=== PATIENT | female | born 1945 | race Caucasian/White ===

== ENCOUNTER → 2017-01-26 11:04 | Outpatient (CLI) | payer MEDICARE, OTHER ==
[~2017-01-26] VITALS: Ht 162.6 cm; Wt 79.1 kg
--- NOTE | ~2017-01-26 | HEMODYNAMI ---
PATIENT:CATERINA HORTON MEDICAL RECORD: [id number] : 47 LOCATION:[facility] ADMISSION DATE: 01/26/17 Generatedon:01/26/201713:49 Patient name: CATERINA HORTON Patient #: [id number] SSN: [id number] : 1945 Date of study: 01/26/2017 Page: Of Hemodynamic Procedure Report Patient Data Patient Demographics Procedure consent was obtained First Name: CATERINA Gender: Female Last Name: CLIFFORD : 1945 [facility] Initial: J Age: 71 year(s) Patient #: [id number] Race: SSN: [id number] Additional ID: [id number] Contact details [address]: [address] [place] [address] State: [place] City: [facility] Zip code: [address] Past Medical History Allergies Allergen Reaction Date Comments Reported Other allergy 01/26/2017 Baltazar Inhibitors Admission Admission Data Admission Date: 01/26/2017 Admission Time: 11:04 Arrival Date: 01/26/2017 Arrival Time: 13:00 Admit Source: Other Insurance Payor: Medicare Height (in.): 64 BSA: 1.84 (m2) Height (cm.): 162.56 BMI: 29.87 (kg/m2) Weight (lbs.): 174 Weight (kg.): 78.93 Lab Results Lab Result Date: 01/26/2017 Lab Result Time: 0:00 Biochemistry Name Units Result Min Max BUN mg/dl 19 --(----)*- 7 18 Creatinine mg/dl 0.9 --(-*--)-- 0.6 1.3 CBC Name Units Result Min Max Hemoglobin g/dl 12.3 *-(----)-- 13.5 17.5 Procedure Procedure Types Cath Procedure Diagnostic Procedure C Coronaries only Aortic Root Angiography Miscellaneous Procedures Moderate Sedation up to 30 minutes Procedure Description Procedure Date Procedure Date: 01/26/2017 Procedure Start Time: 13:23 Procedure End Time: 13:48 Procedure Staff Name Function Melvin Mcleod MD Performing Physician Bhavna Miller RT Scrub Tan Edwards RT Scrub Amrit Rose RN Nurse Angela Adair RT Monitor Procedure Data Cath Procedure Fluoroscopy Diagnostic fluoroscopy Total fluoroscopy Time: 5.1 time: 5.1 min min Diagnostic fluoroscopy Total fluoroscopy dose: 570 dose: 570 mGy mGy Contrast Material Contrast Material Type Amount (ml) Isovue 300 126 Entry Location Entry Primary Successful Side Size Upsize Upsize Entry Closure Succes sful Closure Location (Fr) 1 (Fr) 2 (Fr) Remarks Device Remarks Femoral Right 5 Fr Exoseal artery Estimated blood loss: 5 ml Diagnostic catheters Device Type Used For End Catheter Placement Cordis 5Fr JL 4.0 Left Coronary Catheter (MP) Angiography Cordis 5Fr 3DRC Catheter Right Coronary (MP) Angiography Cordis 5Fr Pigtail LV Angiography Catheter (MP) Diagnostic Infinity 5Fr Multi-vessel IM catheter Angiography Procedure Complications No complications Procedure Medications Medication Administration Route Dosage Versed I.V. 1 mg Fentanyl I.V. 50 mcg Versed I.V. 1 mg Fentanyl I.V. 50 mcg Hemodynamics Rest BSA: 1.84 (m2) HGB: 12.3 (g/dl) O2 Consumption: Estimated: 162.18 (ml/min) O2 Co nsumption indexed: Estimated:88.14 (ml/min/m) Heart Rate: 59 (bpm) Snapshots Pre Cath Intra NCS Post Cath Vital Signs Time Heart Resp SPO2 etCO2 [id number] NIBP (mmHg) Rhythm Pain Sedation Rate (ipm) (%) (mmHg) (mmHg) Status Level (bpm) 13:08:54 57 28 99 0 0 168/65(124) NSR 0 (11) 10(A) , No pain 13:13:23 56 29 96 0 0 161/66(113) NSR 0 (11) 10(A) , No pain 13:17:37 70 16 90 0 0 138/73(100) NSR 0 (11) 10(A) , No pain 13:21:59 56 19 95 0 0 136/60(118) NSR 0 (11) 9(A) , No pain 13:26:13 63 16 96 0 0 133/68(78) NSR 0 (11) 9(A) , No pain 13:30:27 70 16 90 0 0 132/67(92) NSR 0 (11) 9(A) , No pain 13:34:49 68 18 92 0 0 123/57(92) NSR 0 (11) 9(A) , No pain 13:39:01 71 20 93 0 0 133/69(108) NSR 0 (11) 9(A) , No pain 13:43:19 70 19 93 0 0 142/68(96) NSR 0 (11) 9(A) , No pain 13:47:37 69 9 94 0 0 137/71(106) NSR 0 (11) 10(A) , No pain Medications Time Medication Route Dose Verified Delivered Reason Notes Effectivene ss by by 13:16:14 Versed I.V. 1 mg Amrit Amrit for Milton Rose RN sedation RN 13:16:34 Fentanyl I.V. 50 Amrit Amrit for ronda Rose RN sedation RN 13:21:47 Versed I.V. 1 mg Amrit Tannery for Milton Rose RN sedation RN 13:21:55 Fentanyl I.V. 50 Amrit Amrit for ronda Rose RN sedation concrete bucket unloader Log Time Note 12:50:29 Amrit Rose RN sent for patient. Start room use. 13:01:50 Diagnostic Cath Status : Elective 13:02:31 Patient Height : 64 cm 13:02:35 Patient Weight : 174 kg 13:02:35 Admit Source: Other 13:03:14 Insurance Payor : Medicare 13:03:20 Arrival Date: 01/26/2017 1:00:00 PM 13:03:38 Time tracking: Regular hours 13:03:45 Plan of Care:Hemodynamics will remain stable., Cardiac rhythm will remain stable., Comfort level will be maintained., Respiratory function will remain adequate., Patient/ family verbilizes understanding of procedure., Procedure tolerated without complication., Recovers from procedure without complications.. 13:04:28 Patient received from Pre/Post Procedure Room to [facility] 1 Alert and oriented. Tansferred to table in Supine position. 13:04:31 Warm blankets applied, and jj hugger turned on for patient comfort. 13:04:32 Correct patient and procedure confirmed by team. 13:04:34 Signed procedure consent form obtained from patient. 13:04:35 ECG and BP/O2 sat monitors applied to patient. 13:07:33 Vital chart was started 13:09:57 Baseline sample Acquired. 13:10:34 H&P Date Dictated: 01/26/2017 Within 30 days and on chart., H&P Addendum completed by physician on day of procedure. (MUST COMPLETE FOR ALL OUTPATIENTS). 13:10:36 Pre-procedure instructions explained to patient. 13:10:36 Pre-op teaching completed and patient verbalized understanding. 13:10:38 Family in waiting room. 13:10:39 Patient NPO since Midnight. 13:10:55 Patient allergic to Other allergyAce Inhibitors 13:11:08 Is the patient allergic to Iodine/contrast media? No. 13:11:10 Was the patient premedicated? No 13:11:13 Is patient on blood thinner?Yes 13:11:18 ACC The patient was administered the following blood thiners within the last 24 hours: ACCPlavix 13:13:10 Patient diabetic? No. 13:13:12 Previous problem with sedation/anesthesia? No ? 13:13:15 Snore? Yes 13:13:16 Sleep apnea? No 13:13:18 Deviated septum? No 13:13:18 Opens mouth fully? Yes 13:13:19 Sticks out tongue? Yes 13:13:22 Airway obstruction? No ? 13:13:25 Dentures? No ? 13:13:30 Pre procedure: right dorsailis pedis pulse 1+ Palpable, but thready & weak; easily obliterated 13:13:32 Patient pain scale 0/10 ?. 13:13:43 IV patent on arrival in left forearm with 0.9% NaCl at O. 13:15:58 Lab Result : Creatinine 0.9 mg/dl 13:15:58 Lab Result : BUN 19 mg/dl 13:15:58 Lab Result : Hemoglobin 12.3 g/dl 13:16:04 Lab results completed and on chart. 13:16:07 Right groin area was prepped with chlora-prep and draped in sterile fashion 13:16:09 Alarms reviewed by R. N. 13:16:09 Sharps counted by scrub and verified by R.N. 13:16:12 Physician arrived 13:16:12 --------ALL STOP TIME OUT------ 13:16:13 Final Timeout: patient, procedure, and site verified with staff and physician. All members of the team are in agreement. 13:16:14 Versed 1 mg I.V. was administered by Amrit Rose RN; for sedation; 13:16:16 Right groin site verified by team. 13:16:19 Physical assessment completed. ASA score P 2 - A patient with mild systemic disease as per Melvin Mcleod MD. 13:16:23 Sedation plan: IV Moderate Sedation Versed, Fentanyl 13:16:33 Use device set Femoral Dx 13:16:34 Fentanyl 50 mcg I.V. was administered by Amrit Rose RN; for sedation; 13:16:35 Acist Syringe opened to sterile field. 13:16:35 Bag Decanter opened to sterile field. 13:16:36 Medline Cath Pack opened to sterile field. 13:16:36 Terumo 5Fr [place] Sheath opened to sterile field. 13:16:37 St José Miguel 260cm J .035 wire opened to sterile field. 13:16:38 Acist Hand Control opened to sterile field. 13:16:39 Acist Manifold opened to sterile field. 13:16:39 Diagnostic Infinity 5Fr Multipack catheter opened to sterile field. 13:16:40 Tegaderm 4 x 4 opened to sterile field. 13:19:12 Zero performed for pressure channel P1 13:19:20 Zero performed for pressure channel P1 13:21:47 Versed 1 mg I.V. was administered by Amrit Rose RN; for sedation; 13:21:55 Fentanyl 50 mcg I.V. was administered by Amrit Rose RN; for sedation; 13:23:30 Procedure started. 13:23:30 Full Disclosure recording started 13:23:34 Local anesthetic to right femoral artery with Lidocaine 2% by Melvin Mcleod MD.INITIAL ACCESS ONLY 13:23:55 A 5 Fr sheath was inserted into the Right Femoral artery 13:26:20 A Cordis 5Fr JL 4.0 Catheter (JORGE) was advanced over the wire and used for Left Coronary Angiography. 13:27:45 LCA angiography performed. 13:27:49 Injector settings: Ml/sec: 3, Volume: 6, 13:30:35 Catheter removed. 13:30:57 A Cordis 5Fr 3DRC Catheter (MP) was advanced over the wire and used for Right Coronary Angiography. 13:31:46 RCA angiography performed. 13:31:50 Injector settings: Ml/sec: 3, Volume: 6, 13:34:14 Catheter removed. 13:34:21 A Cordis 5Fr Pigtail Catheter (MP) was advanced over the wire and used for LV Angiography. 13:35:46 Aortic Root visualized 13:36:32 Catheter removed. 13:37:06 A Diagnostic Infinity 5Fr IM catheter was advanced over the wire and used for Multi-vessel Angiography. 13:38:43 Bilateral carotid angiography performed. 13:42:41 Catheter removed. 13:45:02 Cordis 5Fr Exoseal opened to sterile field. 13:45:23 Sheath removed intact; hemostasis achieved with Exoseal to the Right Femoral artery. 13:45:26 Procedure ended.(Physican Out) 13:46:27 Fluoroscopy time 05.10 minutes. 13:46:31 Fluoroscopy dose: 570 mGy 13:46:31 Flurop Dose total: 570 13:47:02 Contrast amount:Isovue 300 126ml. 13:47:04 Sharps counted by scrub and verified by R.N. 13:47:05 Insertion/operative site no bleeding no hematoma. 13:47:08 Post-op/insertion site Right Femoral artery dressed using a 4 x 4 and Tegaderm. 13:47:16 Post right femoral artery:stable 13:47:18 Post Procedure Pulses reassessed and unchanged 13:47:21 Post procedure rhythm: unchanged. 13:47:24 Estimated blood loss: 5 ml 13:47:26 Post procedure instruction explained to patient.Patient verbalizes understanding. 13:47:26 Patient needs reinforcement of post procedure teaching. 13:48:06 Procedure type changed to Cath procedure, Diagnostic procedure, LHC, Coronaries only, Aortic Root Angiography, Miscellaneous Procedures, Moderate Sedation up to 30 minutes 13:48:08 Procedure and supply charges have been captured, reviewed, submitted and are correct. 13:48:14 Procedure Complication : No complications 13:48:19 Vital chart was stopped 13:48:19 See physician's report for complete and final results. 13:48:22 Report given to Pre/Post Procedure Room. 13:48:26 Patient transfered to Pre/Post Procedure Room with Stretcher. 13:48:33 Procedure ended. 13:48:33 Full Disclosure recording stopped 13:48:41 End room use (Document Last) Device Usage Item Name Manufacture Quantity Catalog Hospital Part Current Minimal Lo t# / Number Charge Number Stock Stock Serial# Code Acist Acist 1 [id number] 609666 923109 20 Syringe Medical Systems Inc Bag Microtek 1 2002S 516318 60176 759608 5 Decanter Medical Inc. Medline Cardinal 1 [id number] 627443 74463 749805 5 Cath Pack Health Terumo 5Fr Terumo 1 [id number] 079360 092750 690222 [address] [facility] 1 126777 968819 797165 135543 30 260cm J .035 wire Acist Hand Acist 1 73889 546830 492133 725030 5 Control Medical Systems Inc Acist Acist 1 31949 502514 265952 405761 5 Manifold Medical Systems Inc Diagnostic Cardinal 1 [id number] 376404 61340 256086 30 Infinity Health 5Fr Multipack catheter Tegaderm 4 3M 1 1626W 452574 167714 094783 5 x 4 Cordis 5Fr Cardinal 1 940762 5 JL 4.0 Health Catheter (MP) Cordis 5Fr Cardinal 1 735963 5 3DRC Health Catheter (MP) Cordis 5Fr Cardinal 1 [id number] 5 Pigtail Health Catheter (MP) Diagnostic Cardinal 1 [id number] 304501 858626 989104 5 Infinity Health 5Fr IM catheter Cordis 5Fr Cardinal 1 EX500 617135 403842 224057 10 [facility] [employer] Signature Audit [place] Stage Time Signature Unsigned Intra-Procedure 01/26/2017 Angela Adair 1:49:55 PM RT(R) Signatures Monitor : Angela Adair RT Signature : Date : Time : [facility] [address] [place] [address]
[~2017-01-26 11:04] MED LIST: BAYER CHEWABLE81 MG PO; BYSTOLIC10 MG PO; CARAFATE1 G PO; CELEXA20 MG PO; DIOVAN320 MG PO; LYRICA75 MG PO; PEPCID AC20 MG PO; PERSER VISION; PLAVIX75 MG PO; PRAVACHOL20 MG PO; PROBIOTIC1 EAC1 PO; SYNTHROID25 MCG PO; TUMS500 MG PO; VITAMIN D31000 UNI2 PO
[2017-01-26 11:45] VITALS: BP 152/61; Ht 162.6 cm; Wt 79.1 kg
[2017-01-26 12:02] LABS: BASOPHILS 0.4 % (0-2); EOSINOPHILS 2.7 % (0-7); HEMATOCRIT 35.4 % (36.0-48.0); HEMOGLOBIN 12.3 g/dL (12-16); IMMATURE GRANULOCYTES 0.2 % (0-5); LYMPHOCYTES 30.7 % (15-50); MCH 34.2 pg (26.0-34.0); MCHC 34.7 g/dL (31.0-37.0); MCV 98.3 fL (80.0-100.0); MEAN PLATELET VOLUME 11.4 fL (7.4-10.4); MONOCYTES 6.7 % (2-11); NEUTROPHILS 59.3 % (40-80); PLATELET COUNT 189 10x3/uL (130-400); RDW 13.6 % (11.5-14.5); WBC 5.5 10x3/uL (4.8-10.8)
[2017-01-26 12:13] LABS: ANION GAP 13.3 mmol/L (8-16); CALCIUM 9.2 mg/dL (8.5-10.1); CARBON DIOXIDE 26.2 mmol/L (21.0-32.0); CREATININE - SERUM 0.9 mg/dL (0.6-1.3); POTASSIUM - SERUM 4.5 mmol/L (3.5-5.1)
--- NOTE | 2017-01-26 14:15 | NUR ---
RIGHT GROIN CDI, NO HEMATOMA OR BLEEDING AT SITE, SOFT TO TOUCH. FRIEND AT SIDE
--- NOTE | 2017-01-26 14:45 | NUR ---
NO CHANGES IN RIGHT GROIN, RESTING WITH EYES CLOSED, VSS
--- NOTE | 2017-01-26 16:20 | NUR ---
IV D'C WITH CATH TIP INTACT, UP TO RESTROOM- VOID. WRITTEN AND VERBAL D'C INSTRUCTIONS GIVEN TO PT AND FRIEND. DENIES PAIN OR FURTHUR NEEDS.
== END | disposition home or self-care (01) ==
LOC: D.CATH 11:04
PROVIDERS: Internal Medicine Cardiovascular Disease
DX: I25.119 Atherosclerotic heart disease of native coronary artery with unspecified angina pectoris (principal); R94.30 Abnormal result of cardiovascular function study, unspecified; R06.02 Shortness of breath; I35.9 Nonrheumatic aortic valve disorder, unspecified; I10 Essential (primary) hypertension; Z01.812 Encounter for preprocedural laboratory examination

== ENCOUNTER → 2017-01-28 13:30 | Outpatient (CLI) | payer MEDICARE, OTHER ==
[2017-01-26 11:45] VITALS: BMI 29.9
== END | disposition home or self-care (01) ==
LOC: D.CT 13:30
DX: I65.23 Occlusion and stenosis of bilateral carotid arteries (principal)

== ENCOUNTER → 2017-02-05 15:11 | Outpatient (CLI) | payer MEDICARE, OTHER ==
[2017-01-26 11:45] VITALS: BMI 29.9
[2017-02-06 11:10] LABS: HEPATITIS C ANTIBODY <0.1 (0.0-0.9)
== END | disposition home or self-care (01) ==
LOC: D.US 15:00
PROVIDERS: Internal Medicine Cardiovascular Disease
DX: I25.10 Atherosclerotic heart disease of native coronary artery without angina pectoris (principal); R09.89 Other specified symptoms and signs involving the circulatory and respiratory systems; Z01.812 Encounter for preprocedural laboratory examination

== ENCOUNTER 2017-02-12 05:00 | Inpatient (IN) | payer MEDICARE, OTHER ==
[2017-02-11 11:34] LABS: BASOPHILS 0.2 % (0-2); EOSINOPHILS 3.2 % (0-7); HEMATOCRIT 35.4 % (36.0-48.0); HEMOGLOBIN 12.1 g/dL (12-16); LYMPHOCYTES 29.3 % (15-50); MCH 34.2 pg (26.0-34.0); MCHC 34.2 g/dL (31.0-37.0); MEAN PLATELET VOLUME 11.7 fL (7.4-10.4); MONOCYTES 7.2 % (2-11); NEUTROPHILS 60.1 % (40-80); PLATELET COUNT 167 10x3/uL (130-400); RBC 3.54 10x6/uL (4.00-5.40); WBC 5.3 10x3/uL (4.8-10.8)
[2017-02-11 11:43] LABS: APTT 28.9 SECONDS (22.8-39.4); INR 0.95 (0.85-1.17); PROTIME 12.5 SECONDS (11.6-15.0)
[2017-02-11 11:45] LABS: HEMOGLOBIN A1C 5.1 % (4.8-6.0)
[2017-02-11 11:52] LABS: APPEARANCE CLEAR (CLEAR); BILIRUBIN NEGATIVE (NEGATIVE); COLOR YELLOW (YELLOW); GLUCOSE NEGATIVE (NEGATIVE); KETONE NEGATIVE (NEGATIVE); LEUKOCYTE ESTERASE NEGATIVE (NEGATIVE); NITRITE NEGATIVE (NEGATIVE); PROTEIN NEGATIVE (NEGATIVE); UROBILINOGEN NORMAL (NORMAL)
[2017-02-11 11:59] LABS: ANION GAP 9.3 mmol/L (8-16); BILIRUBIN - TOTAL 0.51 mg/dL (0.2-1.3); CALCIUM 9.2 mg/dL (8.5-10.1); CARBON DIOXIDE 30.7 mmol/L (21.0-32.0); CREATININE - SERUM 0.9 mg/dL (0.6-1.3); PHOSPHOROUS 3.9 mg/dL (2.5-4.9); PROTEIN - SERUM 7.5 g/dL (6.4-8.2); T4 THYROXIN - FREE 1.01 ng/dL (0.76-1.46); THYROID STIMULATING HORMONE 4.32 uIU/mL (0.36-3.74); URIC ACID 5.6 mg/dL (2.6-7.2)
[2017-02-11 12:09] LABS: PLT FUNCT.(P2Y12) PLAVIX 257 PRU (194-418)
[2017-02-11 14:09] LABS: COLD SCREEN @ 4 DEGREES 2+ (NEGATIVE); COLD SCREEN ROOM TEMP NEGATIVE (NEGATIVE)
[2017-02-12] VITALS (37 sets, daily range): BP systolic 97–168; BP diastolic 42–77; BMI 29.9; BMI 30.6
[~2017-02-12] VITALS: Ht 162.6 cm; Wt 80.9 kg
--- NOTE | ~2017-02-12 | TEE ---
PATIENT:CATERINA HORTON MEDICAL RECORD: [id number] LOCATION:[place] [address] AGE OF PATIENT: 71 ADMISSION DATE: 02/12/17 SEX: F REFERRING PHYSICIAN: INTERPRETING PHYSICIAN: ROSARIO EDWARDS MD TRANSESOPHAGEAL ECHOCARDIOGRAM MICHAEL CHARGE Y INDICATIONS: CABG PREMEDICATIONS: PATIENT'S RESPONSE PROCEDURE DOPPLER MEASUREMENTS: LVIT LA PA RA LVOT RVOT Asc. Ao AV Gradient Peak AV Mean AV Area MV Gradient Peak MV Mean MV Area INTERPRETATION: Doppler: 2-D: EF 50 % COLOR FLOW DOPPLER MILD MR/TRACE TR NORMAL SALINE STUDY: MISCELLANOUS: DIAGNOSIS: PLAN: Audio Narrator:2 Dr. Mcleod Accounting Systems Manager: 1 ADRIEL GRIMES COMMENTS: GUILLERMO PATIENT DATE OF SERVICE: 02/12/2017 PROCEDURE: Transesophageal echo evaluation of valvular structures during bypass surgery. FINDINGS: 1. Left ventricular chamber size is within normal limits. Left ventricular systolic function is normal. Overall ejection fraction estimated at 50%. 2. Left atrium, right atrium, and right ventricle chamber sizes are within TRANSESOPHAGEAL ECHOCARDIOGRAM REPORT [id number] AXEL HORTON normal limits. 3. Valvular structures have normal structure and motion. 4. Doppler interrogation reveals mild mitral regurgitation, mild tricuspid regurgitation, no other valvular insufficiency or stenosis. 5. No evidence of pericardial effusion or left ventricular thrombus. TRANSINT:[id number] Voice Confirmation ID: [id number] DOCUMENT ID: [id number] ROSARIO EDWARDS MD CC: [id number] DICTATION DATE: 02/15/17 1028 FUR STORAGE CLERK: 02/15/17 1258 ADM IN [place] [address] [place] [address]
[~2017-02-12 05:00] MED LIST changes: +MELATONIN10 M1 PO; -PERSER VISION; +PERSER VISION PO; +PRESERVISION AR1 CAP PO
[2017-02-12 07:40] LABS: PLT FUNCT.(P2Y12) PLAVIX 249 PRU (194-418)
[2017-02-12 14:24] LABS: HEMATOCRIT 30.4 % (36.0-48.0); HEMOGLOBIN 10.7 g/dL (12-16); MCH 33.1 pg (26.0-34.0); MCHC 35.2 g/dL (31.0-37.0); MCV 94.1 fL (80.0-100.0); RBC 3.23 10x6/uL (4.00-5.40); RDW 14.9 % (11.5-14.5); WBC 10.2 10x3/uL (4.8-10.8)
[2017-02-12 14:30] LABS: APTT 36.4 SECONDS (22.8-39.4); CALCIUM 7.3 mg/dL (8.5-10.1); CARBON DIOXIDE 27.5 mmol/L (21.0-32.0); CHLORIDE - SERUM 113 mmol/L (98-107); CREATININE - SERUM 0.7 mg/dL (0.6-1.3); INR 1.42 (0.85-1.17); PROTIME 17.2 SECONDS (11.6-15.0); SODIUM 151 mmol/L (136-145); UREA NITROGEN 16 mg/dL (7-18); eGFR NON AFRICAN AMERICAN 88 mL/min (90-120)
[2017-02-12 14:31] LABS: CALC OSMOLALITY 305 mosm/kg (275-300); GLUCOSE 195 mg/dL (74-106)
--- NOTE | 2017-02-12 15:00 | NUR ---
PT ARRIVED TO ROOM VIA BED, ACCOMPANIED BY O.R. STAFF. PT IS VENTILATED. HAS PLASMALYTE, DOPAMINE, LEVOPHED INFUSING. HAS CHEST TUBE X3. MIDSTERNAL DRESSING INTACT AND CLEAN. SUBSTERNAL DRESSING OVER CHEST TUBES AND TEMP PACER IS INTACT AND CLEAN. RIGHT LEG GRAFT SITES DRESSING IS INTACT. SUDEEP DRAINS X2. COMPRESSED. PT HAS CRITICORE GOVEA. CURRENT TEMP IS 36.4. URINE CLEAR, DARK YELLOW. WARMING BLANKET STARTED. ILIA AND SCD ON LEFT LEG ONLY AT THIS TIME. PT IS CURRENTLY PACED WITH PACEMAKER SETTING OF DDD 90, 20, 10. HAS OGT. VERIFIED PLACEMENT VIA AUSCULTATION. VISIBLE GASTRIC RETURN UPON PLACING ON SUCTION. PT ETT IS SECURED. 21CM AT LIPLINE. SIZE 8.0. HAS LEFT SUBCLAVIAN CENTRAL LINE. RIGHT IJ SWAN AT 51CM. LOCKED AND SECURED. HAS RIGHT RADIAL ART LINE. ART, PA AND CVL ZEROED FOR ACCURACY.
--- NOTE | 2017-02-12 17:41 | NUR ---
CONSULT CALLED IN TO DR CONN, SPOKE WITH HIM, HE IS AWARE. DR PRINGLE OFFICE CALLED, DR UNGER IS RETAIL ANALYTICS MANAGER, CONSULT WILL GO TO HIM. AWAITING HIS RETURN CALL.
--- NOTE | 2017-02-12 18:48 | NUR ---
DR LI CALLED WITH LATEST BLOOD GAS TOTALS. ASKS FOR 20MEQ OVER 2 HOURS TO BE GIVEN TO COVER LOW POTASSIUM.
--- NOTE | 2017-02-12 18:55 | NUR ---
PT EXTUBATED. PLACED ON 4LNC.
--- NOTE | 2017-02-12 18:58 | NUR ---
PACER SETTING CHANGED TO 90, 10, [address] LI.
--- NOTE | 2017-02-12 19:10 | NUR ---
MORPHINE ARMHOLE FELLER HANDSTITCHING MACHINE INITATED. 1MG Q10MIN. 24MG/Q4HR LOCKOUT.
--- NOTE | 2017-02-12 19:31 | NUR ---
ORAL CARE PERFORMED WITH PERIDEX ORDERED
--- NOTE | 2017-02-12 19:40 | NUR ---
SHIFT ASSESSMENT COMPLETED. SEE ASSESSMENT FLOWSHEET FOR DETAILS. ANSWERS QUESTIONS APPROPRIATELY. ORIENTED X4 EXCEPT SHE WAS UNAWARE SHE HAD ALREADY HAD THE "BYPASS". C.O PAIN TO LEFT CHEST/LEFT CHEST TUBE AREA. REPORTS IT STABBING AT A 7/10 ON NUMBER SCALE. MORPHINE STRUCTURAL STEEL ENGINEER IN USE 1MG Q 10 MINUTES PRN IN USE AND SHOWN HOW TO USE. RUB HEARD THROUGHOUT LUNG/HEART TONE DAVIS. O2 @ 4LPM/NC. ICE CHIPS STARTED TO GIVE AT SLOW RATE-NO BOWEL SOUNDS HEARD AT THIS TIME. RT LEG COBAND DRSG C/D/I WITH 2-SUDEEP DRAINS COMPRESSED DRAINING SANGUINOUS DRAINAGE. CT X3 TO 20CM SUCTION. PALPABLE PERIPHERAL PULSES X4. RT RADIAL A-LINE INTACT. TPM: DDD-90; 10; 10. A-SENSING, V-PACING. 1:1 NURSING CARE IN PROGRESS.
--- NOTE | 2017-02-12 20:37 | NUR ---
INFORMED HER JOHANNY AND JL HAVE CALLED TO CHECK ON HER. ICE CHIPS GIVEN. WILL MONITOR.
--- NOTE | 2017-02-12 21:20 | NUR ---
2100 MEDS GIVEN EASILY WITH WATER. NO DIFFICULTY SWALLOWING. WANTS MORE WATER BUT WILL HOLD OFF 30 MINUTES TO ONE HOUR DUE TO NO BOWEL SOUNDS HEARD YET. MORPHINE CONSOLE MANAGER BUTTON PRESSED, WILL TURN ONCE PAIN MEDS KICKS IN. WILL MONITOR.
--- NOTE | 2017-02-12 21:35 | NUR ---
TURNED AND REPOSITIONED TO RT SIDE SLIGHTLY WITH PILLOW SUPPORT. HEAD PILLOW GIVEN INSTEAD OF OR PILLOW. WAS RELUCTANT TO TURN AT FIRST. INFORMED OF REASON TO TURN. VERBALIZED UNDERSTANDING. WILL MONITOR.
--- NOTE | 2017-02-12 22:35 | NUR ---
ABG'S DRAWN FROM RT RADIAL A-LINE WITHOUT DIFFICULTY. WILL TRANSFUSE 2 UNITS PRBC'S, AND 10MEQ KCL. WILL MONITOR. 1:1 NURSING CARE IN PROGRESS.
--- NOTE | 2017-02-12 23:00 | NUR ---
1ST UNIT OF PRBC'S STARTED VIA RT IJ CORDIS. REASSESSMENT COMPLETED. SEE ASSESSMENT FLOWSHEET. NO RUB HEARD IN LUNG LOBE DAVIS. TOLERATING WATER. DENIES NAUSEA. HYPOACTIVE BOWEL SOUNDS NOW HEARD. WILL MONITOR.
--- NOTE | 2017-02-12 23:45 | NUR ---
I.S. COMPLETED AFTER BREATHING TREATMENT 250-500ML.
[2017-02-13] VITALS (96 sets, daily range): BP systolic 84–135; BP diastolic 39–67; Ht 162.6 cm; Wt 80.9 kg
--- NOTE | 2017-02-13 00:36 | NUR ---
FSBS ASSESSED, NO CHANGE IN INSULIN GTT. PRBC'S FLUSHING WITH SALINE AT PRESENT. WILL MONITOR.
--- NOTE | 2017-02-13 01:25 | NUR ---
ABG'S RESULTED. WILL CALL DR. LI WITH DECREASED URINARY OUTPUT, DECREASED CARDIAC OUTPUT TO 3.5 AND O2 SATS 91-93% ON THE MONITOR AND DECREASED ON THE ABG.
--- NOTE | 2017-02-13 01:25 | NUR ---
INCREASED O2 TO 5LPM/NC PER GINA WITH R.T. AFTER ABG RESULTS. WILL INFORM DR. LI.
--- NOTE | 2017-02-13 01:40 | NUR ---
DR. LI CALLED TO INFORM OF DECREASED URINARY OUTPUT, CARDIAC OUTPUT AND O2 SAT DECLIN WITH MINIMAL INSPIRATORY EFFORTS ON I.S. NEW ORDERS NOTED AND PLACED INTO COMPUTER. BICARB 50MEQ PUSH GIVEN ORDERED. WILL MONITOR.
--- NOTE | 2017-02-13 02:35 | NUR ---
BECAME NAUSEATED. EMESIS BAG OBTAINED. IV ZOFRAN OBTAINED AND GIVEN. STATED SHE "FEEL LIKE I'M GOING TO THROW UP". BELCHED THEN SAID "MAYBE THAT WAS ALL I NEEDED TO DO". NO EMESIS. ZOFRAN GIVEN. DEEP BREATHING AND COUGHING EXERCISES COMPLETED. WILL MONITOR.
--- NOTE | 2017-02-13 03:00 | NUR ---
IPPB TREATMENT STARTED PER GINA DonaldsonT.
--- NOTE | 2017-02-13 03:30 | NUR ---
PORTABLE CHEST XRAY COMPLETED. TOLERATED WELL. REASSESSMENT COMPLETED. SEE ASSESSMENT FLOWSHEET. ENCOURAGED DEEP COUGH WITH SPLINTING. WEAK TO FAIR COUGH NON-PRODUCTIVE NOTED. 0345: RT LEG COBAND DRSG REMOVED AND DRSG CHANGED PER ORDERS. RT LEG AND UNDER ARMS AND BILATERAL ARMS WASHED WITH BATH CLOTHES. GOVEA GABRIEL CARE COMPLETED PER STANDARD PROCEDURE FOR WIPES. DENIES TO BE TURNED AT THIS TIME. TOP SHEET CHANGED OUT. WATER GIVEN PER REQUEST BUT ENCOURAGED TO TAKE SMALL SIPS AND NOT SIP IF BEGINNING TO GET NAUSEATED. WILL MONITOR.
--- NOTE | 2017-02-13 05:15 | NUR ---
12-LEAD EKG COMPLETED. IPPB TREATMENT STARTED ALSO. ABG'S ASSESSED. NOTHING TO TREAT ON ABG, WILL ENCOURAGED DEEP BREATHS AGAIN. TAKING SIPS OF WATER ON HER OWN. WILL MONITOR. 1:1 NURSING CARE IN PROGRESS.
--- NOTE | 2017-02-13 06:10 | NUR ---
SON AT BEDSIDE FOR 0600 VISITATION. UPDATE GIVEN. WILL MONITOR.
--- NOTE | 2017-02-13 06:50 | NUR ---
AM LABS AND VANC TROUGH DRAWN VIA RT RADIAL A-LINE. WILL CONTINUE TO MONITOR.
[2017-02-13 06:55] LABS: HEMATOCRIT 28.8 % (36.0-48.0); MCH 32.5 pg (26.0-34.0); MCHC 34.7 g/dL (31.0-37.0); MCV 93.5 fL (80.0-100.0); MEAN PLATELET VOLUME 11.2 fL (7.4-10.4); PLATELET COUNT 89 10x3/uL (130-400); RBC 3.08 10x6/uL (4.00-5.40); RDW 15.9 % (11.5-14.5); WBC 7.8 10x3/uL (4.8-10.8)
[2017-02-13 07:08] LABS: ANION GAP 13.9 mmol/L (8-16); BILIRUBIN - TOTAL 0.8 mg/dL (0.2-1.3); CALCIUM 8.8 mg/dL (8.5-10.1); CARBON DIOXIDE 28.5 mmol/L (21.0-32.0); CREATININE - SERUM 0.9 mg/dL (0.6-1.3); POTASSIUM - SERUM 4.4 mmol/L (3.5-5.1); PROTEIN - SERUM 5.7 g/dL (6.4-8.2)
[2017-02-13 07:22] LABS: PLATELET ESTIMATE DECREASED
--- NOTE | 2017-02-13 08:05 | NUR ---
TURN COUGH AND DEEP BREATHING DONE. PULLS APPROX 500 ON INCENTIVE SPIROMETER.
--- NOTE | 2017-02-13 09:20 | NUR ---
VISITOR AT BEDSIDE. NO C/O AT THIS TIME.
--- NOTE | 2017-02-13 11:00 | NUR ---
IS DONE. PULLS 500.
--- NOTE | 2017-02-13 11:35 | NUR ---
VANCOMYCIN REQUESTED FROM PHARMACY.
--- NOTE | 2017-02-13 11:49 | NUR ---
PACEMAKER SETTINGS CHANGED PER DR. LI. NOW VVI 60.
--- NOTE | 2017-02-13 14:24 | NUR ---
SHAMPOO BATH AND LINEN CHANGE COMPLETE. TPM DRESSING CHANGED.
--- NOTE | 2017-02-13 16:00 | NUR ---
DR. LI NOTIFIED AT 1547 OF CURRENT VITAL SIGNS, URINE OUTPUT AND PT CONDITION. NEW ORDERS RECEIVED. DOPAMINE TURNED TO 5 MCG/KG/MIN AT 1550. PT INFORMED OF ORDERS FOR BIPAP AND EDUCATED ON BIPAP. R.T. NOTIFIED. AT BEDSIDE SETTING UP FOR 18/8 CONTINUOUS AND WILL DC IPPB.
--- NOTE | 2017-02-13 16:53 | NUR ---
TOLERATING BIPAP. VSS. RESTING EYES CLOSED. MORE AROUSABLE.
--- NOTE | 2017-02-13 19:15 | NUR ---
SHIFT ASSESSMENT COMPLETED. SEE ASSESSMENT PER FLOWSHEET. LETHARGIC BUT AWAKENS AND ANSWERS QUESTIONS ASKED. WEARING BIPAP MASK-18/8; 40% FIO2; RATE OF 10. TPM SET AT VVI-60; VMA OF 10. PACER SENSING. NSR IN THE 90'S W/ AN OCCASSIONAL PAC/PVC. WILL MONITOR. 1:1 NURSING CARE IN PROGRESS.
--- NOTE | 2017-02-13 20:15 | NUR ---
FSBS-120. RESTARTED INSULIN GTT @ 1 UNIT/HR. WILL MONITOR.
--- NOTE | 2017-02-13 21:15 | NUR ---
MORE FREQUENT PAC'S. THEN BEGAN V-PACING AT 60 AND B/P DECREASED TO 70'S SYSTOLIC. TPM SET BACK TO DDD 90; 10; 10 AND B/P RETURNED TO BASELINE. ABG OBTAINED. DR. LI CALLED AND INFORMED OF ABOVE EVENTS. NEW ORDERS RECEIVED. WILL MONITOR.
--- NOTE | 2017-02-13 21:35 | NUR ---
PO MEDS INCLUDING PRN TYLENOL GIVEN FOR ELEVATED TEMP GIVEN OFF BIPAP AND ON 5LPM VIA NC. BACTROBAN APPLIED TO BILATERAL NARES. TOLERATED WELL AND DROP IN SVO2 WHILE OFF BIPAP TO 38. BACK TO BASELINE WHEN BACK ON BIPAP. TURNED AND REPOSITIONED TO LEFT SIDE. WEAK COUGH EFFORTS NOTED OFF BIPAP. DID WANT A DOSE OF PAIN MEDS AFTER TURNING. WILL MONITOR.
--- NOTE | 2017-02-13 22:13 | NUR ---
DURAN, "DAUGHTER", CALLED TO GET UPDATE. UPDATE GIVEN AFTER PASSWORD VERIFIED. WILL MONITOR.
--- NOTE | 2017-02-13 23:20 | NUR ---
REASSESSMENT COMPLETED. SEE ASSESSMENT FLOWSHEET. AWAKENS TO TOUCH OR NOISE. ANSWERS ORIENTATION QUESTIONS CORRECTLY. IV ABX HUNG A PRIMARY. NO ACUTE DISTRESS NOTED. WILL MONITOR. 1:1 NURSING CARE IN PROGRESS.
[2017-02-14] VITALS (67 sets, daily range): BP systolic 96–158; BP diastolic 45–71
--- NOTE | 2017-02-14 00:20 | NUR ---
BIPAP MASK ADJUSTED. FSBS ASSESSED. NO CHANGE IN INSULIN GTT. WILL MONITOR.
--- NOTE | 2017-02-14 01:33 | NUR ---
B/P DROPPED TO 80'S SYSTOLIC AND O2 SATS TO 83% ON BIPAP AT 40%. ABG'S OBTAINED. KCL AND CALCIUM CHLORIDE STARTED. FIO2 ON BIPAP INCREASED TO 50% PER GINA WITH R.T. FOR NOW. O2 SATS CLIMBED TO 97% WITHIN A FEW MINUTES AFTER CHANGING FINGERS. B/P RETURNED TO BASELINE. WILL MONITOR CLOSELY.
--- NOTE | 2017-02-14 03:00 | NUR ---
FSBS ASSESSED. AWAKENS. TURNED INSULIN GTT BACK ON PER PROTOCOL. WILL MONITOR.
--- NOTE | 2017-02-14 04:05 | NUR ---
RT LEG DRSG CHANGED PER PROTOCOL/ORDERS. INCISIONS X5 TO RT LEG WNL. MORGAN INTACT. TOLERATED WELL. GOVEA PERINEAL CARE COMPLETED. WILL MONITOR.
--- NOTE | 2017-02-14 05:05 | NUR ---
12-LEAD EKG COMPLETED PER GINA WITH R.T. AV PACEMAKER NOTED. NO ACUTE CHANGES NOTED. WILL MONITOR.
--- NOTE | 2017-02-14 05:16 | NUR ---
SINCE BEING TURNED TO RT SIDE PA PRESSURE AND B/P SLOWLY CLIMBED. TRANSDUCER AT PHLEBOSTATIC AXIS. NITRO GTT STARTED @ 3ML/HR. WILL MONITOR. 1:1 NURSING CARE IN PROGRESS.
--- NOTE | 2017-02-14 06:00 | NUR ---
NITRO GTT D/C'ED. PRESSURE 100'S SYSTOLIC. AM LABS DRAWN FROM RT RADIAL A-LINE WITHOUT DIFFICULTY. SWEATING NOTED AROUND HEAD AND NECK. BATH CLOTHES USED TO CLEAN AREA. PILLOW CASE CHANGED OUT. ASSISTED WITH WASHING HERSELF. ASKED IF JOHANNY WAS COMING. INFORMED HER I HAD TOLD HER ABOUT 5 MINUTES PRIOR JOHANNY HAD RECENTLY CALLED AND WOULD BE HERE AT 9 AND IT IS 6AM NOW. VERBALIZED UNDERSTANDING. WILL MONITOR.
[2017-02-14 06:15] LABS: HEMATOCRIT 27.4 % (36.0-48.0); HEMOGLOBIN 9.3 g/dL (12-16); MCH 32.3 pg (26.0-34.0); MCHC 33.9 g/dL (31.0-37.0); MCV 95.1 fL (80.0-100.0); MEAN PLATELET VOLUME 11.1 fL (7.4-10.4); RBC 2.88 10x6/uL (4.00-5.40); RDW 16.2 % (11.5-14.5); WBC 8.1 10x3/uL (4.8-10.8)
[2017-02-14 06:29] LABS: ALBUMIN 3.1 g/dL (3.4-5.0); BILIRUBIN - TOTAL 0.8 mg/dL (0.2-1.3); CALCIUM 8.6 mg/dL (8.5-10.1); CARBON DIOXIDE 26.8 mmol/L (21.0-32.0); POTASSIUM - SERUM 4.8 mmol/L (3.5-5.1); PROTEIN - SERUM 5.7 g/dL (6.4-8.2)
[2017-02-14 06:30] LABS: CREATININE - SERUM 1.3 mg/dL (0.6-1.3)
--- NOTE | 2017-02-14 07:25 | NUR ---
MEDS GIVEN EARLY TO [facility] WITH RESPIRATORY TREATMENTS. SEE MAR.
--- NOTE | 2017-02-14 11:07 | NUR ---
EPISODE OF BLOOD PRESSURE DROPPING INTO THE MID 80'S SYSTOLIC. O2 SAT OF 82 ON MONITOR AND SVO2 OF 39 AT 1057. STAT ABG DRAWN RESULTS SHOW NO CORRECTIVE ACTION NEEDED. BP UP TO 119/53, O2 SAT OF 95 ON THE MONITOR AND SVO2 OF 52 AT 1103.
--- NOTE | 2017-02-14 13:54 | NUR ---
LINES DC'D PER ORDER. TIPS INTACT. GOVEA CATH DC'D PER ORDER. TPM DRESSING CHANGED. PT BATHED. AWAITING P.T. FOR EVAL. SUDEEP DRAINS DC'D PER ORDER. LINENS CHANGED.
--- NOTE | 2017-02-14 14:01 | NUR ---
VERIFIED WITH DR. LI PT TO REMAIN ON BIPAP CONTINUOUS.
--- NOTE | 2017-02-14 14:05 | HP ---
PATIENT: CATERINA HORTON MEDICAL RECORD: [id number] ACCOUNT: [id number] LOCATION:[facility]05 : 46 ADMISSION DATE: 02/12/17 HISTORY AND PHYSICAL EXAMINATION NameCATERINA HORTON (71yo, F) ID# [id number]. Date/Time02/05/2017 01:73TSNTS90 1945Service Dept.NPP_[facility] ClinicProviderEDSONYA LI MDInsuranceMed Primary: [place]ICARE-[place] (MEDICARE) Insurance # : [id number] Referring Provider Name : SHAKA PRINGLE Employer Name : RETIRED Med Secondary: [employer] (MEDICARE SUPPLEMENT) Insurance # : [id number] Employer Name : RETIRED Med : [employer] (MEDICARE SUPPLEMENT) Insurance # : [id number] Employer Name : RETIRED Prescription: CMX - Member is eligible. Chief Complaint valvular heart disease, Coronary artery disease, Carotid stenosis Patient's Care Team Referring Provider (): SHAKA PRINGLE: [address] [place] [phone], , Enterprise Application Developer: AURELIA CONN MD: [address] [place] [phone], , Patient's Pharmacies [facility] (MAIL-ORDER, ERX): [facility] [id number], , Vitals BP:170/8 0 sitting R arm 02/05/2017 01:42 pm 160/70 sitting L arm 02/05/2017 01:43 pmHR:60R/R 02/05/2017 01:43 pmHt:5 ft 4 in 02/05/2017 01:42 pmWt:174 lbs 02/05/2017 01:40 pmNotes:murmur 02/05/2017 01:43 pmBMI:29.9 02/05/2017 01:42 pmAllergies Reviewed Allergies NORMAN INHIBITORSMedications Reviewed Medications Aspir-Low02/02/17 [facility] WilsonBystolic 10 mg lbtrum66/04/17 filledCaremarkcalcium carbonate 1,177 mg chewable tablet Take by oral route.02/02/17 [facility] Wilsoncholecalciferol (vit D3) 1,000 unit-vitamin K2 (MK4) 100 mcg tablet Take by oral route.02/02/17 entered[facility] Wilsoncitalopram 20 mg qfaddy64/04/17 filledCaremarkclopidogrel 75 mg /09/17 filledCaremarkfamotidine 20 mg tablet Take 1 tablet(s) twice a day by oral route.02/02/17 [facility] Centerlact[facility].acidophilus (bulk)02/02/17 [facility] Wilsonlevothyroxine 25 mcg jzeuzg50/06/17 filledCaremarkLyrica 75 mg /30/17 filledCaremarkNitrostat 0.4 mg sublingual culmyl70/01/11 filledMEDCOpravastatin 20 mg nosjls66/30/17 filledCaremarksucralfate 1 gram /04/17 filledCaremarkvalsartan 320 mg comrbu14/03/17 filledCaremarkVaccines Reviewed Vaccines Vaccine TypeDateAmt.RouteSiteLot #Mfr.Exp. DateDate on VISVIS GivenVaccinatorInfluenzainfluenza, seasonal, /30/11[facility] CpnnjyvbdlRpstclowxsxmmpvdavqtkepf11/30/11[facility] HealthmartProblems HISTORY AND PHYSICAL [id number] CATERINA HORTON Reviewed Problems Carotid artery stenosis - Onset: 02/05/2017 Tricuspid valve regurgitation - Onset: 02/05/2017 Mitral valve regurgitation - Onset: 02/05/2017 Aortic valve stenosis - Onset: 02/05/2017 Abnormal glucose level Acute renal failure syndrome Anxiety state Osteoarthritis of knee Pure hypercholesterolemia Solitary nodule of lung - Onset: 02/02/2017 Coronary atherosclerosis Hyperlipidemia Acute myocardial infarction Acute stress disorder Disorder of tendon Benign hypertensive heart disease without congestive heart failure Benign neoplasm of colon Family History Discussed Family History Unspecified Relation- Myocardial infarction - previously recorded as Heart Attack ([place])Unspecified Relation- Malignant neoplastic disease - previously recorded as Cancer, otherUnspecified Relation- Hypertensive disorder - previously recorded as HypertensionSocial History Discussed Social History General Marital status: General stress level: High Smoking Status: Former smoker (Notes: quit >10yrs) Alcohol intake: Occasional is primary patient care provider to who requires home care 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 HPI Cerebral Vascular Disease Reported by patient. Quality: weakness; numbess; dizziness Alleviating Factors: position change HISTORY AND PHYSICAL [id number] CATERINA HORTON Coronary Artery Disease F/U Reported by patient. Severity: chest discomfort with household activities/yard work; has used Nitroglycerin Associated Symptoms: chest pain with exertion; dyspnea with exertion ROS Patient reports exercise intolerance but reports no fever, no night sweats, no significant weight gain, and no significant weight loss; easy fatigability. She reports shortness of breath when walking but reports no chest pain, no arm pain on exertion, no shortness of breath when lying down, no palpitations, and no known heart murmur. She reports shortness of breath but reports no cough, no wheezing, and no coughing up blood. She reports dizziness but reports no loss of consciousness, no weakness, no numbness, no seizures, and no headaches. She reports no dry eyes, no irritation, and no vision change. She reports no difficulty hearing and no ear pain. She reports no frequent noseb dudley and no nose/sinus problems. She reports no sore throat, no bleeding gums, no snoring, no dry mouth, no mouth ulcers, no oral abnormalities, and no teeth problems. She reports no jugular vein distension and no swollen glands. She reports no abdominal pain, no vomiting, normal appetite, no diarrhea, not vomiting blood, no nausea, and no constipation. She reports no incontinence, no difficulty urinating, no hematuria, and no increased frequency. She reports no muscle aches, no muscle weakness, no arthra l gias/joint pain, no back pain, and no swelling in the extremities. She reports no abnormal mole, no jaundice, and no rashes. She reports no depression, no sleep disturbances, feeling safe in relationship, and no alcohol abuse. She reports no fatigue. She reports no swollen glands and no bruising. She reports no runny nose, no sinus pressure, no itching, no hives, and no frequent sneezing. ROS as noted in the HPI Physical Exam Patient is a 71-year-old female. Constitutional: General Appearance healthy-appearing, well developed, and overweight. Level of Distress NAD. Ambulation ambulating normally. Cardiovascular: Apical Impulse not displaced or no thrill. Heart Auscultation normal s1 and s2; no murmurs, rubs, or gallops; and RRR. Arterial Pulses no abdomin al aorta bruits, femoral bruits, or popliteal bruits and 2+ bilateral, carotid 2+ bilateral, femoral 2+ bilateral, popliteal 2+ bilateral, and dorsalis pedis 2+ bilateral. Edema no edema or varicosities. Lungs: Repiratory Effort no dyspnea. Percussion no hyperresonance or dullness or flatness. Auscultation no wheezing, rhonchi, or rales / crackles and breathing sounds normal, good air movement, and CTA except as noted. Abdomen: Bowl Sounds normal. Inspection and Palpation no tenderness, guarding, masses, or rebound tenderness and soft and non-distended. Liver non-tender and no hepatomegaly. Spleen non-tender and no splenomegaly. Hernia none palpable. Musculoskeletal System: Gait And Stance normal gait and stance. Digits and Nails normal nails and no cyanosis. Neurologic: Cranial Nerves grossly intact. Reflexes DTRs 2+ bilaterally throughout. Sensation grossly intact. Lymph Nodes: Lymph Nodes no cervical LAD, supraclavicular LAD, axillary LAD, or HISTORY AND PHYSICAL [id number] GUILLERMO HORTONIA J inguinal LAD. Eyes: Lids and Conjunctivae no discharge or pallor and non-injected. Pupils PERRLA. Cornea grossly intact. EOM EOMI. Lens clear. Sclera non-icteric. Neck: Neck no masses or enlarged lymph nodes and supple, trachea midline, and carotid bruits (bilateral). Thyroid no enlargement or nodules and non-tender. Skin: Inspection and Palpation no rash, lesions, ulcers, jaundice, or abnormal nevi. Assessment / Plan severe occlusive coronary artery disease Mild carotid artery disease Left solitary pulmonary nodule mild aortic stenosis 1. Coronary atherosclerosis I25.10: Atherosclerotic heart disease of [place] coronary artery without angina pectoris 2. Aortic valve stenosis I35.0: Nonrheumatic aortic (valve) stenosis AORTIC VALVE STENOSIS: CARE INSTRUCTIONS 3. Tricuspid valve regurgitation I07.1: Rheumatic tricuspid insufficiency 4. Mitral valve regurgitation I34.0: Nonrheumatic mitral (valve) insufficiency HEART VALVE DISEASE: CARE INSTRUCTIONS MITRAL VALVE REGURGITATION: CARE INSTRUCTIONS 5. Carotid artery stenosis I65.29: Occlusion and stenosis of unspecified carotid artery CAROTID STENOSIS: CARE INSTRUCTIONS 6. Solitary nodule of lung R91.1: Solitary pulmonary nodule Discussion Notes patient would benefit from coronary artery bypass to the left anterior descending and first diagonal obtuse marginal and right coronary We will workup her solitary pulmonary nodule later I have discussed her disease process with her in detail as well as the alternative methods of treatment. We discussed paula nary artery bypass including the expected benefits and risks which include bleeding, infection, stroke, , and the imponderables. She understands all the above and wishes to proceed with planned procedure. Scheduled carotid Doppler abdominal and disco ntinue Plavix. schedule for coronary artery bypass HISTORY AND PHYSICAL [id number] CATERINA HORTON EDWARD MD at 1405 CC: [id number] DICTATION DATE: 02/05/17 1315 TURN SEWER: STEPHANI 02/08/[address] [facility] [address] [id number]
--- NOTE | 2017-02-14 14:05 | OP ---
PATIENT NAME: CATERINA HORTON MEDICAL RECORD: [id number] :47 LOCATION:[facility] ADMISSION DATE:02/12/17 SURGEON: DEXTER MORALES MD DATE OF OPERATION: 02/12/2017 SURGEON: Dexter Morales MD. ANESTHESIA: General endotracheal, Dr. Jansen. OPERATION PERFORMED: Coronary artery bypass utilizing left internal thoracic, left anterior descending, reverse saphenous vein segment to the obtuse marginal coronary artery and reverse saphenous vein graft to the distal right coronary artery. PREOPERATIVE DIAGNOSES: Angina pectoris and severe occlusive coronary artery disease. POSTOPERATIVE DIAGNOSES: Angina pectoris and severe occlusive coronary artery disease. INDICATION FOR OPERATION: Angina pectoris. FINDINGS OF THE OPERATION: The left internal thoracic and greater saphenous vein grafts were of excellent quality. The target vessels, LAD, OM and right were of good caliber and quality for grafting. The first diagonal was severely and diffusely diseased, too small and not a graftable vessel. ESTIMATED BLOOD LOSS: Cell Saver was used. DESCRIPTION OF PROCEDURE: After informed consent, adequate preoperative medication and evaluation, the patient was brought to the operating room and placed on the table in the supine position. After induction of general endotracheal anesthesia and application of appropriate monitoring devices, the chest, neck, abdomen, and both legs were prepped and draped in a sterile field, utilizing Betadine scrub, alcohol, and Betadine solution. A Betadine-impregnated drape was also used. Saphenous vein was harvested from the right thigh and prepared for reverse saphenous vein grafting. The leg was closed over drains utilizing 3-0 Vicryl and skin adan. A median sternotomy incision was used and dissection carried down the fascia. Hemostasis was maintained with electrocautery. Sternum was divided. Innominate vein was identified and protected. The left internal thoracic was taken down and prepared for grafting. The patient was given a calculated dose of heparin, cannulated in a standard fashion utilizing 1 aortic, 1 two-stage cannula in the atrium and inferior vena cava. The patient was placed on cardiopulmonary bypass, cooled to 32 degrees centigrade. A cross clamp was placed just proximal to the aortic cannula and the patient was given cardioplegic solution through the aortic root. The patient was given a warm induction and cold maintenance. The patient was given cold intermittent cardioplegic solution throughout the procedure through the grafts, through the root or a combination of both. The first vessel to be grafted was the distal right. It was grafted end-to-side utilizing a running 7-0 Prolene suture. The grafts were measured back to the aorta and a proximal anastomosis fashioned utilizing running 6-0 Prolene suture. Next, the obtuse marginal was grafted end-to-side utilizing a running 7-0 Prolene suture. Graft was measured back to the aorta and a proximal anastomosis fashioned utilizing running 6-0 Prolene suture. Next, left internal thoracic OPERATIVE REPORT [id number] CATERINA HORTON was brought through the hole in pericardium, sutured left anterior descending end-to-side utilizing a running 8-0 Prolene suture. Pedicle was attached to epicardium with 6-0 Prolene suture. All maneuvers to remove trapped air were performed. The patient was given warm cardioplegic reperfusion and controlled reperfusion. The patient was rewarmed to 37 degrees centigrade. Two atrial and 2 ventricular placing wires were placed in the heart and brought out through the epigastric area. The patient was weaned cardiopulmonary bypass. After being stable off bypass, he was given a calculated dose of protamine to reverse the heparin. Hemostasis was achieved. A #40 right angle and #36 chest tubes were brought in through the epigastric area and placed in mediastinum. A separate left pleural tube was connected to underwater seal and suction. Chest was again irrigated. Instrument count and sponge count were correct times 2. Chest was closed in layers utilizing #7 wire on the sternum, #2 Vicryl in linea alba and pectoralis fascia. Subcutaneous tissue was approximated with 3-0 Vicryl and skin approximated with 3-0 subcuticular Vicryl. Sterile dressings were applied. The patient tolerated the procedure well and was transferred to cardiovascular recovery in stable condition. TRANSINT:[id number] Voice Confirmation ID: [id number] DOCUMENT ID: [id number] DEXTER MORALES MD at 1405 CC: [id number] DICTATION DATE: 02/12/17 1500 MAILING MANAGER: 02/12/171957 ADM IN [facility] [address] [place] [address]
--- NOTE | 2017-02-14 14:22 | NUR ---
UP TO CHAIR PER P.T. BIPAP REMAINS IN PLACE. NOTIFIED R.T. OF VERIFICATION OF CONTINUOUS ORDER.
--- NOTE | 2017-02-14 19:20 | NUR ---
RECEIVED CARE OF PT, ASSESSMENT PER FLOWSHEET. PT RESTING IN BED WITH BIPAP 40% FIO2 IN PLACE, AROUSES EASILY TO VOICE, HR PACED ON MONITOR AT 90, RHONCHI AUSCULTATED WITH DIM BASES, STERNAL DRESSINGS CDI, PACER WIRES SECURED, RT LEG DRESSINGS CDI, PPP, PT POSITIONED FOR COMFORT, ALL NEEDS DENIED, WILL MONITOR.
--- NOTE | 2017-02-14 20:10 | NUR ---
PT DAUGHTER, DURAN CALLED-PASSWORD PROVIDED AND UPDATE GIVEN. PT NOTIFIED PER FAMILY MEMBER REQUEST.
--- NOTE | 2017-02-14 23:45 | NUR ---
ASSISTED PT TO BSC, BIPAP REMAINS IN PLACE, VOIDED 600 CC OF URINE, BACK TO BED, POSITIONED UP AND SUPPORTED WITH PILLOWS, VSS, REMAINS A-V PACED ON MONITOR.
[2017-02-15] VITALS (45 sets, daily range): BP systolic 105–175; BP diastolic 50–93
--- NOTE | 2017-02-15 01:15 | NUR ---
PT RESTING IN BED WITH EYES CLOSED, BIPAP IN PLACE, A-V PACED ON MONITOR, VSS, CONT POC.
--- NOTE | 2017-02-15 03:10 | NUR ---
REASSESSMENT PER FLOWSHEET, NO ACUTE CHANGES NOTED. REMAINS A-V PACED AT 90 ON CM, POSITIONED FOR COMFORT.
--- NOTE | 2017-02-15 05:35 | NUR ---
ASSISTED PT TO BSC, VOIDED 300CC OF CLEAR YELLOW URINE, BACK TO BED WITHOUT INCIDENT, VSS.
[2017-02-15 06:09] LABS: HEMATOCRIT 26.3 % (36.0-48.0); HEMOGLOBIN 8.8 g/dL (12-16); MCH 32.1 pg (26.0-34.0); MCHC 33.5 g/dL (31.0-37.0); MEAN PLATELET VOLUME 10.8 fL (7.4-10.4); RBC 2.74 10x6/uL (4.00-5.40); RDW 15.5 % (11.5-14.5); WBC 6.3 10x3/uL (4.8-10.8)
[2017-02-15 06:26] LABS: ALBUMIN 2.9 g/dL (3.4-5.0); ANION GAP 7.5 mmol/L (8-16); BILIRUBIN - TOTAL 0.7 mg/dL (0.2-1.3); CALCIUM 8.7 mg/dL (8.5-10.1); CARBON DIOXIDE 29.9 mmol/L (21.0-32.0); CREATININE - SERUM 1.2 mg/dL (0.6-1.3); POTASSIUM - SERUM 4.4 mmol/L (3.5-5.1); PROTEIN - SERUM 5.7 g/dL (6.4-8.2)
--- NOTE | 2017-02-15 07:00 | NUR ---
PT RECEIVED. PT IN BED WITH BIPAP ON AT THIS TIME.
--- NOTE | 2017-02-15 10:09 | NUR ---
PT ASSISTED UP TO BEDSIDE TOILET. 900ML URINE OUT. NO BM. PT NOW IN CHAIR AT BEDSIDE.
--- NOTE | 2017-02-15 10:42 | NUR ---
Nutrition Follow Up: Pt's diet has been advanced to Clear Liquids. Wt gain noted. No BM since admit. Labs reviewed. Meds noted including Lasix. Rec advancing YG when medically feasible. RD following.
--- NOTE | 2017-02-15 12:43 | NUR ---
PT ASSISTED UP TO TOILET. 1000ML CLEAR YELLOW URINE OUT.
--- NOTE | 2017-02-15 14:28 | NUR ---
PT HAS WALKED WITH PHYSICAL THERAPY. RETURNED TO ROOM AND PLACED ON BEDSIDE TOILET. HAS HAD 600ML CLEAR YELLOW URINE OUT. PASSED GAS, NO BM.
--- NOTE | 2017-02-15 15:22 | NUR ---
PT UP IN CHAIR. BREATHING TREATMENT IN PROGRESS. DENIES NEEDS. CALL LIGHT IN REACH.
--- NOTE | 2017-02-15 16:16 | NUR ---
PT SBP ELEVATED. NOT POSITIONAL. NO PRN MEDICATIONS. SPOKE WITH NAZIA ARNOLD. ASKED TO START PT ON NITRO AND GIVE LASIX.
--- NOTE | 2017-02-15 19:30 | NUR ---
UP TO BSC WITH MINIMAL ASSIST, GABRIEL-CARE PER PT AND BACK TO BED. DSGS CHANGED PER MD ORDERS BY Aron SANDS.. NITRO GTT OFF. ALARMS ON.
--- NOTE | 2017-02-15 20:23 | NUR ---
PT VISITING WITH SISTER ON PHONE. VSS.
--- NOTE | 2017-02-15 21:27 | NUR ---
NO VISITORS. ADMIN PO MEDS PER MD ORDER. PT DENIES OTHER NEEDS.
--- NOTE | 2017-02-15 23:35 | NUR ---
REASSESSMENT PER FLOWSHEET, NO ACUTE CHANGES. PT UP TO BSC, VOIDED 500ML CLEAR, YELLOW URINE. GABRIEL-CARE PER PT AND BACK TO BED. GIVEN CRANBERRY JUICE PER REQUEST. ALARMS ON AND C/L IN USE.
[2017-02-16] VITALS (39 sets, daily range): BP systolic 90–129; BP diastolic 36–61
--- NOTE | 2017-02-16 01:30 | NUR ---
RESTING WITH EYES CLOSED, VSS. NO SIGN OF DISTRESS.
--- NOTE | 2017-02-16 03:26 | NUR ---
REASSESSMENT PER FLOWSHEET, NO ACUTE CHANGES. PT AWAKENS EASILY, VSS. DENIES PAIN OR NEEDS. ASSISTED WITH PILLOWS FOR COMFORT. ALARMS ON AND C/L IN REACH.
--- NOTE | 2017-02-16 04:37 | NUR ---
TO XRAY VIA W/C AND BACK TO ROOM. LINENS CHANGED. PT BACK TO BED WITH MINIMAL ASSIST. PRN TYLENOL GIVEN FOR C/O INCISIONAL PAIN. FRESH WATER/CRANBERRY AT BS. ALARMS ON AND C/L IN REACH.
[2017-02-16 06:24] LABS: HEMATOCRIT 25.5 % (36.0-48.0); HEMOGLOBIN 8.6 g/dL (12-16); MCH 32.7 pg (26.0-34.0); MCHC 33.7 g/dL (31.0-37.0); MEAN PLATELET VOLUME 11.3 fL (7.4-10.4); RBC 2.63 10x6/uL (4.00-5.40); RDW 14.9 % (11.5-14.5); WBC 5.5 10x3/uL (4.8-10.8)
[2017-02-16 06:46] LABS: ALBUMIN 2.8 g/dL (3.4-5.0); ANION GAP 7.6 mmol/L (8-16); BILIRUBIN - TOTAL 0.5 mg/dL (0.2-1.3); CALCIUM 8.5 mg/dL (8.5-10.1); CARBON DIOXIDE 31.7 mmol/L (21.0-32.0); CREATININE - SERUM 1.1 mg/dL (0.6-1.3); POTASSIUM - SERUM 3.3 mmol/L (3.5-5.1); PROTEIN - SERUM 5.7 g/dL (6.4-8.2)
--- NOTE | 2017-02-16 07:30 | NUR ---
PT AWAKE, UP IN CHAIR. HAS BEEN UP TO TOILET. DENIES NEEDS AT THIS TIME. AWAITING BREAKFAST.
--- NOTE | 2017-02-16 09:02 | NUR ---
PT HAD REGULAR BREAKFAST TRAY OF EGGS AND TOAST. TOLERATED WELL.
--- NOTE | 2017-02-16 09:38 | NUR ---
SPOKE WITH NAZIA ARNOLD ABOUT DOBUTAMINE DRIP. CURRENTLY AT RATE OF 5MCG/KG/MIN. TO DROP TO 3MCG. WILL CONTINUE TO MONITOR.
--- NOTE | 2017-02-16 14:52 | NUR ---
PT UP WALKING WITH PHYSICAL THERAPY.
--- NOTE | 2017-02-16 15:03 | NUR ---
* Is the patient Alert and Oriented? Yes 0 * How many steps to enter\exit or inside your home? 1 0 * PCP Dr. Baltazar 0 * Pharmacy [facility] 0 * Preadmission Environment Home Alone 0 * ADLs Independent 0 * List name and contact numbers for known caregivers / representatives who currently or will assist patient after discharge: Friend - Tejal Rodriguez [phone] 0 * Additional services required to return to the preadmission environment? No 0 * Can the patient safely return to the preadmission environment? Yes 0 * Has this patient been hospitalized within the prior 30 days at any hospital? No Patient Name: CATERINA HORTON Admission Status: Elective Accout number: [id number] Admission Date: 02-12-2017 : 1945 Admission Diagnosis: Attending: RAFAEL LI Current LOS: 4 Anticipated DC Date: 02-19-2017 Planned Disposition: Home Primary Insurance: MEDICARE A & B Discharge Planning Comments: CM met with patient to assess dc plans/needs. Patient states she lives alone & is independent with all ADL's & IADL's. She has made arrangements for her friend, Tejal Rodriguez, to stay with her after discharge. She denies home health services or using any DME at home. She has arranged for a house keeper to assist her at home as well. Her friend Tejal plans to supervisor opening and picking a BSC at the [facility] to have on hand should she need it. No other needs identified or verbalized at this time. CM will follow. Concreter: Mildred Petty
--- NOTE | 2017-02-16 17:14 | NUR ---
PT UP IN CHAIR. DINNER TRAY PROVIDED. DENIES NEEDS. DOPAMINE TURNED DOWN TO 0.5MCG/KG/MIN
--- NOTE | 2017-02-16 18:30 | NUR ---
DOPAMINE TURNED OFF.
--- NOTE | 2017-02-16 19:30 | NUR ---
REC'D TO CARE, UTILIZATION ENGINEER PER FLOWSHEET. PT BACK TO BED AFTER BEING UP IN CHAIR. VSS. PT REPOSITIONS WITH MINIMAL ASSIST. TPM VVI 60 - SENSING. ALARMS ON AND C/L IN USE.
--- NOTE | 2017-02-16 21:09 | NUR ---
ADMIN PO MEDS PER MD ORDERS. PT REPOSITIONED UP IN BED FOR COMFORT. ALARMS ON AND C/L IN REACH.
--- NOTE | 2017-02-16 23:30 | NUR ---
REASSESSMENT PER FLOWSHEET, NO ACUTE CHANGES. ALARMS ON AND C/L IN REACH.
[2017-02-17] VITALS (19 sets, daily range): BP systolic 95–126; BP diastolic 41–76
--- NOTE | 2017-02-17 03:15 | NUR ---
REASSESSMENT PER FLOWSHEET, NO ACUTE CHANGES. VSS.
--- NOTE | 2017-02-17 03:55 | NUR ---
DSG CHANGES TO R LEG AND UPPER ABD PER MD ORDER. SEE FLOWSHEET.
--- NOTE | 2017-02-17 04:10 | NUR ---
PT UP TO BSC. THEN UP TO SINK FOR AM CARE, BRUSHED TEETH. TO XRAY VIA W/C.
--- NOTE | 2017-02-17 04:30 | NUR ---
BACK TO RROM AND BACK IN BED. VSS. ALARMS ON AND C/L IN REACH.
--- NOTE | 2017-02-17 05:30 | NUR ---
RESTING WITH EYES CLOSED, VSS.
[2017-02-17 06:22] LABS: HEMATOCRIT 24.6 % (36.0-48.0); HEMOGLOBIN 8.3 g/dL (12-16); MCH 32.9 pg (26.0-34.0); MCHC 33.7 g/dL (31.0-37.0); MCV 97.6 fL (80.0-100.0); MEAN PLATELET VOLUME 10.9 fL (7.4-10.4); RBC 2.52 10x6/uL (4.00-5.40); WBC 5.6 10x3/uL (4.8-10.8)
[2017-02-17 06:50] LABS: ALBUMIN 2.7 g/dL (3.4-5.0); ANION GAP 6.3 mmol/L (8-16); BILIRUBIN - TOTAL 0.6 mg/dL (0.2-1.3); CALCIUM 8.2 mg/dL (8.5-10.1); CARBON DIOXIDE 33.2 mmol/L (21.0-32.0); POTASSIUM - SERUM 3.5 mmol/L (3.5-5.1); PROTEIN - SERUM 5.5 g/dL (6.4-8.2)
--- NOTE | 2017-02-17 06:50 | NUR ---
ORAL CARE DONE WITH PERIDEX
--- NOTE | 2017-02-17 09:00 | NUR ---
AM MEDS GIVEN WITHOUT DIFFICULTY,
--- NOTE | 2017-02-17 09:26 | NUR ---
AMBULATING WITH PHYSICAL THERAPY, PORTABLE TELEMTRY AND O2 ARE IN USE
--- NOTE | 2017-02-17 09:33 | NUR ---
BACK TO ROOM FROM AMBULATING, 500 FT, UNSTEADY GAIT NOTED, NO DYSPNEA, POST O2 SAT 96%
--- NOTE | 2017-02-17 09:52 | NUR ---
Nutrition Follow Up: Pt is eating 100% meal avg on an AHA diet. +BM 02/16/17. Labs reviewed. Meds noted including JOSELYN Lazaro. Rec continue current diet. RD following.
--- NOTE | 2017-02-17 10:59 | NUR ---
RT AT BEDSIDE FOR IS TRAINING, 750 INSPIRATION OBTAINED, CONTINUES TO SIT UP IN CHAIR WITH NO SIGNS OF DISTRESS, ASSESSMENT COMPLETE PER FLOWSHEET, VSS, CALL LIGHT IN REACH, VOICES NO NEEDS AT THIS TIME
--- NOTE | 2017-02-17 13:45 | NUR ---
AMBULATING WITH PT, PORTABLE TELEMETRY AND PORTABLE O2 IN USE
--- NOTE | 2017-02-17 13:53 | NUR ---
AMBULATED, 500 FT WITH TO REST STOPS, GAIT MORE STEADY, O2 SAT POST WALKING 96%
--- NOTE | 2017-02-17 14:45 | NUR ---
CALLED TO ROOM, OUT OF CHAIR TO BATHROOM, TOLERATED WITH STAND BY ASSIST, VOIDED 300 CC TO [place] HAT, BACK TO CHAIR, DRESSING CHANGE TO RIGHT NECK, CLEANED WITH HIBICLENS SOAP, DRIED WITH STERIL GAUZE, TEGADERM DRESSING APPLIED
--- NOTE | 2017-02-17 15:05 | NUR ---
FRIEND AT BEDSIDE, NO NEEDS AT THIS TIME
--- NOTE | 2017-02-17 16:45 | NUR ---
DINNER TRAY TO BEDSIDE, INDEPENDENT WITH SET UP AND EATING
--- NOTE | 2017-02-17 18:00 | NUR ---
AMBULATED FROM CHAIR TO BATHROOM WITH STANDBY ASSIST, INDEPENDENT WITH SKINCARE, BTB, REPOSITIONED UP AND TO BACK, NO OTHER NEEDS AT THIS TIME
--- NOTE | 2017-02-17 19:00 | NUR ---
ORAL CARE DONE
--- NOTE | 2017-02-17 19:00 | NUR ---
REPORT RECEIVED AND ASSESSMENT COMPLETED. PT IS A POST OP CABG. ALERT AND ORIENTED. TPM VVI 60 VMA 10. CURRENTLY SENSING. DRSG'S CDI. PT IS UP WITH PT DURING DAY SHIFT. WALKED 500 FT TODAY. WILL MONITOR THROUGHOUT SHIFT FOR COMPLICATIONS.
--- NOTE | 2017-02-17 21:00 | NUR ---
2100 MEDS PASSED. DRSG CHANGES ON HARVEST SITES. SOME OOZING NOTED FROM LOWER SUDEEP SITE.
--- NOTE | 2017-02-17 23:00 | NUR ---
REASSESSMENT COMPLETED. SEE FLOWSHEET FOR FULL DETAILS. VSS. WILL CONTINUE TO MONITOR. NO OTHER CHANGES IN STATUS AT THIS TIME.
[2017-02-18] VITALS (25 sets, daily range): BP systolic 107–141; BP diastolic 42–81
--- NOTE | 2017-02-18 01:20 | NUR ---
PT SLEEPING COMFORTABLY. NO NEW CHANGES AT THIS TIME. VSS. WILL CONTINUE TO MONITOR
--- NOTE | 2017-02-18 03:00 | NUR ---
REASSESSMENT COMPLETED. SEE FLOWSHEET FOR FULL DETAILS. VSS AT THIS TIME. NO OTHER CHANGES IN STATUS. WILL CONTINUE TO MONITOR.
--- NOTE | 2017-02-18 05:00 | NUR ---
RADIOLOGY AT BEDSIDE FOR PA AND LAT. WILL ACCOMPANY PT TO DEPARTMENT FOR IMAGING. I&O COLLECTED. NO OTHER CHANGES AT THIS TIME. VSS. WILL MONITOR
--- NOTE | 2017-02-18 07:30 | NUR ---
REPORT RECEIVED. ASSUMED CARE OF PATIENT. UP TO TOILET. ALERT AND ORIENTED. NO ASSIST NEEDED EXCEPT FOR MONITORING EQUIPMENT REMOVAL.
--- NOTE | 2017-02-18 09:00 | NUR ---
PT HAS BEEN UP TO WALK WITH PHYSICAL THERAPY. WALKED ON ROOM AIR, SAT READING BETWEEN 85-89 ON 2 DIFFERENT PORTABLE MONITORS. READING OF 92% WHEN PLACED ON ROOM MONITOR. PT PLACED ON 1LNC.
--- NOTE | 2017-02-18 12:36 | NUR ---
VISITOR AT BEDSIDE AT THIS TIME. PT HAS HAD LUNCH. SITTING UP IN CHAIR AT BEDSIDE.
--- NOTE | 2017-02-18 14:58 | NUR ---
PT UP IN CHAIR AT BEDSIDE. SUBCLAVIAN CENTRAL LINE, BOTH LUMENS FLUSHED. DENIES NEEDS AT THIS TIME.
--- NOTE | 2017-02-18 17:00 | NUR ---
TURNED PT O2 OFF FROM 1L NC.
--- NOTE | 2017-02-18 18:37 | NUR ---
PT ASSISTED BACK TO BED REQUESTED AFTER GETTING UP TO TOILET.
--- NOTE | 2017-02-18 19:04 | NUR ---
ORAL CARE DONE
--- NOTE | 2017-02-18 19:20 | NUR ---
SHIFT ASSESSMENT COMPLETE, SEE FLOWSHEET FOR DETAILS. A&O X4, NSR ON MONITOR, TPM VVI 60, SENSING. ROOM AIR O2 SAT 93-96%. UP TO BATHROOM, STEADY GATE. TOLERATES WELL. VSS, CL IN REACH, WILL MONITOR.
--- NOTE | 2017-02-18 20:45 | NUR ---
NIGHT MEDS GIVEN WITHOUT PROBLEM, FRESH ICE WATER AND CRANBERRY JUICE PROVIDED. DENIES FURTHER NEED.
--- NOTE | 2017-02-18 23:15 | NUR ---
REASSESSMENT COMPLETE, NO CHANGES. NSR ON MONITOR. TPM SENSING. VSS, DENIES NEED AT THIS TIME. WILL MONITOR.
[2017-02-19] VITALS (24 sets, daily range): BP systolic 101–161; BP diastolic 35–66
--- NOTE | 2017-02-19 01:10 | NUR ---
RESTING WITH EYES CLOSED. VSS.
--- NOTE | 2017-02-19 03:10 | NUR ---
REASSESSMENT COMPLETE, SEE FLOWSHEET. NO CHANGES FROM INITIAL ASSESSMENT. VSS. DENIES NEED.
--- NOTE | 2017-02-19 05:08 | NUR ---
BACK FROM XRAY, TOLERATED WELL, DID DESAT TO 87% WITH ACTIVITY. BACK TO BED AND PLACED ON 1L O2. NOW SAT IS 93%. WILL MONITOR. DENIES NEED AT THIS TIME, VSS.
--- NOTE | 2017-02-19 10:04 | NUR ---
Nutrition Follow Up: Pt is eating 100% meal avg on an AHA diet. +BM 02/18/17. Wt loss noted. Labs reviewed. Meds noted including Lasix. Rec continue current diet. RD following.
--- NOTE | 2017-02-19 10:15 | NUR ---
PACEMAKER WIRES DC'D PER NAZIA ARNOLD.
--- NOTE | 2017-02-19 14:24 | NUR ---
O2 SAT NOTED TO BE 84% ON MONITOR. PT FOUND ASLEEP IN CHAIR WITH MOUTH OPEN. WOKE PT UP SAT IMMEDIATELY 91% ON ROOM AIR. NAZIA ARNOLD NOTIFIED. INCREASE IS AND AMBULATION.
--- NOTE | 2017-02-19 18:40 | NUR ---
ORAL CARE PERFORMED WITH PERIDEX ORDERED
--- NOTE | 2017-02-19 19:20 | NUR ---
SHIFT ASSESSMENT COMPLETE, SEE FLOWSHEET FOR ALL DETIALS. A&O X4, VSS. NSR ON MONITOR. ROOM AIR WITH O2 SAT 94%. IS COMPLETED, PATIENT HAD GOOD EFFORT, REACHED 1000, STATES SHE IS TIRED FROM TODAY. CRANBERRY JUICE AND WATER PROVIDED PER REQUESTS. DENIES FURTHER NEED AT THIS TIME.
--- NOTE | 2017-02-19 21:00 | NUR ---
NIGHT MEDS GIVEN. IS COMPLETED. REACHED 1000 AGAIN, IMPROVEMENT ON O2 SAT. REMAINING ON ROOM AIR.
--- NOTE | 2017-02-19 22:30 | NUR ---
PATIENT DESATS WHEN SLEEPING, WOKEN UP AND DID DEEP BREATHING AND COUGHING. PASSIVE EFFORT. REMINDED HER THE EXERCISES WERE NEEDED TO IMPROVE RESPIRATORY QUALITY, STATES UNDERSTANDING.
--- NOTE | 2017-02-19 23:00 | NUR ---
REASSESSMENT COMPLETE, SEE FLOWSHEET. NO ACUTE CHANGES. IS COMPLETED WITH RT. DENIES NEED AT THIS TIME. VSS.
[2017-02-20] VITALS (13 sets, daily range): BP systolic 95–129; BP diastolic 44–70
--- NOTE | 2017-02-20 01:10 | NUR ---
IS COMPLETE, GOOD EFFORT. DENIES NEED.
--- NOTE | 2017-02-20 03:10 | NUR ---
RESTING WELL, BREATHING EXERCISES DONE, GOOD EFFORT. O2 SAT 91-93%. VSS.
--- NOTE | 2017-02-20 04:40 | NUR ---
BACK FROM XRAY, TOLERATED WELL. NSR ON MONITOR, SAT 94%.
--- NOTE | 2017-02-20 12:52 | NUR ---
LEFT SUBCLAVIAN CVL DC'D PER ORDER. MANUAL PRESSURE APPLIED TIMES 7 MINUTES. CLEAR DRESSING APPLIED. PT INSTRUCTED ON S/SX OF BLEEDING OR SWELLING TO REPORT. TO REMAIN FLAT UNTIL 1330. C/L IN REACH.
[2017-02-20] MEDS ORDERED: HEMOCYTE PLUS C1 CAP PO (13:01)
[2017-02-20] MEDS ORDERED: LASIX INJ40 MG/4 ML IV (13:03)
[2017-02-20] MEDS ORDERED: K-DUR20 MEQ PO (13:04)
--- NOTE | 2017-02-20 14:01 | NUR ---
DC INSTRUCTIONS REVIEWED WITH PT. NO CURRENT QUESTIONS.
--- NOTE | 2017-02-20 14:47 | NUR ---
PT DC'D HOME WITH FRIENDS.
== END 2017-02-20 14:47 | disposition home or self-care (01) | DRG 236 ==
LOC: D.SDCHOLD 05:00 → D.CVICU 05:00 → D.SDCHOLD 07:30 → D.CVICU 11:18
PROVIDERS: ADMIT Internal Medicine Cardiovascular Disease
PROC: 021109W Bypass Coronary Artery, Two Arteries from Aorta with Autologous Venous Tissue, Open Approach (ICD-10-PCS; 2017-02-12)
PROC: 06BP0ZZ Excision of Right Saphenous Vein, Open Approach (ICD-10-PCS; 2017-02-12)
PROC: 5A1221Z Performance of Cardiac Output, Continuous (ICD-10-PCS; 2017-02-12)
PROC: B245ZZ4 Ultrasonography of Left Heart, Transesophageal (ICD-10-PCS; 2017-02-12)
PROC: 02100AC Bypass Coronary Artery, One Artery from Thoracic Artery with Autologous Arterial Tissue, Open Approach (ICD-10-PCS; principal; 2017-02-12 07:30)
DX: I25.10 Atherosclerotic heart disease of native coronary artery without angina pectoris (principal); J98.11 Atelectasis; I10 Essential (primary) hypertension; E78.5 Hyperlipidemia, unspecified; Z87.891 Personal history of nicotine dependence; R91.1 Solitary pulmonary nodule; I73.9 Peripheral vascular disease, unspecified; E03.9 Hypothyroidism, unspecified

== ENCOUNTER → 2017-03-11 12:46 | Outpatient (CLI) | payer MEDICARE, OTHER ==
[2017-02-13 10:19] VITALS: BMI 32.5
[~2017-03-11 12:46] MED LIST changes: +CARDIZEM CD180 MG PO; +HEMOCYTE PLUS C1 CAP PO; +K-DUR20 MEQ PO; +LASIX INJ40 MG/4 ML IV
[2017-03-11 13:08] LABS: HEMATOCRIT 33.1 % (36.0-48.0); HEMOGLOBIN 10.9 g/dL (12-16); MCH 32.6 pg (26.0-34.0); MCHC 32.9 g/dL (31.0-37.0); MCV 99.1 fL (80.0-100.0); MEAN PLATELET VOLUME 10.9 fL (7.4-10.4); RBC 3.34 10x6/uL (4.00-5.40); RDW 15.7 % (11.5-14.5); WBC 6.1 10x3/uL (4.8-10.8)
[2017-03-11 13:28] LABS: CALCIUM 9.3 mg/dL (8.5-10.1)
== END | disposition home or self-care (01) ==
LOC: D.LAB 08:45 → D.RAD 09:00 → D.LAB 12:46
PROVIDERS: Internal Medicine Cardiovascular Disease
DX: D64.9 Anemia, unspecified (principal); J90 Pleural effusion, not elsewhere classified

== ENCOUNTER 2017-03-13 22:36 | Emergency (ER) | payer MEDICARE, OTHER ==
[2017-02-13 10:19] VITALS: BMI 32.5
[~2017-03-13 22:36] MED LIST changes: -CARDIZEM CD180 MG PO
[2017-03-13 22:58] LABS: BASOPHILS 0.4 % (0-2); EOSINOPHILS 3.9 % (0-7); IMMATURE GRANULOCYTES 0.1 % (0-5); LYMPHOCYTES 25.8 % (15-50); MCH 32.4 pg (26.0-34.0); MCHC 32.4 g/dL (31.0-37.0); MEAN PLATELET VOLUME 11.7 fL (7.4-10.4); MONOCYTES 7.1 % (2-11); NEUTROPHILS 62.7 % (40-80); PLATELET COUNT 211 10x3/uL (130-400); RDW 15.9 % (11.5-14.5); WBC 8.6 10x3/uL (4.8-10.8)
[2017-03-13 23:12] LABS: ALBUMIN 3.7 g/dL (3.4-5.0); ANION GAP 15.2 mmol/L (8-16); BILIRUBIN - TOTAL 0.32 mg/dL (0.2-1.3); CALCIUM 9.7 mg/dL (8.5-10.1); CARBON DIOXIDE 27.7 mmol/L (21.0-32.0); CREATININE - SERUM 1.2 mg/dL (0.6-1.3); POTASSIUM - SERUM 3.9 mmol/L (3.5-5.1); PROTEIN - SERUM 7.5 g/dL (6.4-8.2)
[2017-03-13 23:29] LABS: TROPONIN-I 0.076 ng/mL (0.000-0.060)
[2017-03-15] MEDS ORDERED: CARDIZEM CD180 MG PO (10:39)
== END 2017-03-14 00:40 | disposition home or self-care (01) ==
LOC: D.ER 22:36
PROVIDERS: Emergency Medicine
DX: I47.1 Supraventricular tachycardia (principal); I24.8 Other forms of acute ischemic heart disease; R79.89 Other specified abnormal findings of blood chemistry; I10 Essential (primary) hypertension

== ENCOUNTER 2017-03-14 17:30 | Observation (INO) | payer MEDICARE, OTHER ==
[2017-03-14 18:59] LABS: THYROID STIMULATING HORMONE 1.97 uIU/mL (0.36-3.74)
--- NOTE | 2017-03-14 19:00 | NUR ---
PT ARRIVES VIA WC TO ROOM FROM ER ACCOMPANIED BY ER NURSE. ASSISTED INTO BED. TELEMETRY PLACED ON. NSR ON MONITOR, HR 70'S. VSS, AFEBRILE. DENIES ANY CURRENT C/O PAIN. UNIT ROUTINES AND PROTOCOLS DISCUSSED WITH PT, AND SHE VERBALIZED UNDERSTANDING. ADMISSION ASSESSMENT AND HISTORY COMPLETED. MEDICATIONS RECONCILED AT THE BEDSIDE. CALL LIGHT PLACED WITHIN REACH. WILL CONT TO MONITOR.
[2017-03-14 19:01] LABS: APPEARANCE HAZY (CLEAR); BILIRUBIN NEGATIVE (NEGATIVE); COLOR YELLOW (YELLOW); GLUCOSE NEGATIVE (NEGATIVE); KETONE NEGATIVE (NEGATIVE); NITRITE NEGATIVE (NEGATIVE); PROTEIN TRACE mg/dL (NEGATIVE); UROBILINOGEN NORMAL (NORMAL)
[2017-03-14 19:02] LABS: EPITHELIAL CELLS 0-5 /hpf (0-5); RED CELLS - URINE 25-50 /hpf (0-5); WHITE CELLS - URINE 25-50 /hpf (0-5)
[2017-03-14 19:03] LABS: BACTERIA FEW /hpf (NONE SEEN)
[2017-03-14 19:05] LABS: TROPONIN-I 0.249 ng/mL (0.000-0.060)
[2017-03-14 20:00] VITALS: BP 98/76
[2017-03-14 20:05] VITALS: BP 98/76; BMI 16.9
[2017-03-15] VITALS: BP 132/60
[2017-03-15 07:03] VITALS: BP 157/64
[2017-03-15 08:00] VITALS: BP 180/80
--- NOTE | 2017-03-15 10:10 | NUR ---
AWAKE RESTING WTIHOUT DISTRESS. DR. EDWARDS VISITED AND ORDERS TO DISCHARGE. MONITOR SHOWS SR @ 88.
[2017-03-15] MEDS ORDERED: CARDIZEM CD180 MG PO (10:39)
--- NOTE | 2017-05-11 12:17 | SS ---
PATIENT:CATERINA DIAZ :47 MEDICAL RECORD: [id number] DISCHARGE SUMMARY ADMISSION DATE: 03/14/17 DISCHARGE DATE: 03/15/17 DISCHARGE DIAGNOSES: 1. Supraventricular tachycardia. 2. Hypertension. HOSPITAL COURSE: Ms. Diaz presents with palpitations and supraventricular tachycardia, had the addition of Cardizem to her Bystolic. She had no further dysrhythmia, discharged home with the addition of Cardizem 180 to the Bystolic. We will follow up with [facility] in 1 month. TRANSINT:[id number] Voice Confirmation ID: [id number] DOCUMENT ID: [id number] ROSARIO EDWARDS MD at 1217 CC: [id number] DICTATION DATE: 04/29/17 1226 [employer] PROF[employer]AL: 04/29/17 1509 DIS IN 03/15/17 [id number] [place] [address]
== END 2017-03-15 11:20 | disposition home or self-care (01) ==
LOC: D.ER 17:30 → D.M2 18:26 → OBSVTIME 18:26 → D.M2 03-15 11:20
PROVIDERS: Emergency Medicine; ADMIT Internal Medicine Interventional Cardiology
DX: I47.1 Supraventricular tachycardia (principal); I25.10 Atherosclerotic heart disease of native coronary artery without angina pectoris; I10 Essential (primary) hypertension; E03.9 Hypothyroidism, unspecified

== ENCOUNTER → 2017-03-23 09:51 | Outpatient (CLI) | payer MEDICARE, OTHER ==
[2017-03-14 20:05] VITALS: BMI 16.9
[~2017-03-23 09:51] MED LIST changes: +CARDIZEM CD180 MG PO
== END | disposition home or self-care (01) ==
LOC: D.CT 09:51
DX: R91.1 Solitary pulmonary nodule (principal)

== ENCOUNTER → 2017-04-21 15:41 | Outpatient (CLI) | payer MEDICARE, OTHER | END | disposition home or self-care (01) | LOC: D.CT 15:41 | DX: R06.00 Dyspnea, unspecified (principal) ==

== ENCOUNTER → 2017-06-10 11:41 | Outpatient (CLI) | payer MEDICARE, OTHER ==
[2017-06-10 12:23] LABS: HEMATOCRIT 34.3 % (36.0-48.0); HEMOGLOBIN 11.7 g/dL (12-16); MCH 33.3 pg (26.0-34.0); MCHC 34.1 g/dL (31.0-37.0); MCV 97.7 fL (80.0-100.0); MEAN PLATELET VOLUME 10.4 fL (7.4-10.4); RBC 3.51 10x6/uL (4.00-5.40); WBC 5.6 10x3/uL (4.8-10.8)
[2017-06-10 12:35] LABS: ANION GAP 9.1 mmol/L (8-16); CALCIUM 9.4 mg/dL (8.5-10.1); CARBON DIOXIDE 29.5 mmol/L (21.0-32.0); CREATININE - SERUM 0.9 mg/dL (0.6-1.3); POTASSIUM - SERUM 4.6 mmol/L (3.5-5.1)
== END | disposition home or self-care (01) ==
LOC: D.RAD 11:30
PROVIDERS: Internal Medicine Cardiovascular Disease
DX: J90 Pleural effusion, not elsewhere classified (principal)

== ENCOUNTER → 2017-12-07 09:21 | Outpatient (CLI) | payer MEDICARE, OTHER ==
[~2017-12-07 09:21] MED LIST changes: +COZAAR100 MG PO; +FUROSEMIDE40 MG PO
== END | disposition home or self-care (01) ==
LOC: D.US 12-06 11:30
DX: I65.23 Occlusion and stenosis of bilateral carotid arteries (principal)

== ENCOUNTER 2018-01-19 11:25 | Outpatient (CLI) | payer MEDICARE, OTHER ==
[~2018-01-19] VITALS: Ht 162.6 cm; Wt 77.7 kg
--- NOTE | ~2018-01-19 | HEMODYNAMI ---
PATIENT:CATERINA HORTON MEDICAL RECORD: [id number] : 47 LOCATION:DMEET ADMISSION DATE: 01/19/18 Generatedon:01/19/201814:51 Patient name: CATERINA HORTON Patient #: [id number] SSN: [id number] : 1945 Date of study: 01/19/2018 Page: Of Hemodynamic Procedure Report Patient Data Patient Demographics Procedure consent was obtained First Name: CATERINA Gender: Female Last Name: CLIFFORD : 1945 [facility] Initial: J Age: 72 year(s) Patient #: [id number] Race: SSN: [id number] Additional ID: [id number] Contact details Address: [address] [place] [address] State: [place] City: [facility] Zip code: [address] Past Medical History Allergies Allergen Reaction Date Comments Reported Other allergy 01/26/2017 Baltazar Inhibitors Other allergy 01/19/2018 BALTAZAR Inhibitors Admission Admission Data Admission Date: 01/19/2018 Admission Time: 11:25 Admit Source: Other Lab Results Lab Result Date: 01/19/2018 Lab Result Time: 0:35 Biochemistry Name Units Result Min Max BUN mg/dl 26 --(----)-* 7 18 Creatinine mg/dl 1 --(--*-)-- 0.6 1.3 CBC Name Units Result Min Max Hematocrit % 32.8 *-(----)-- 42 54 Hemoglobin g/dl 11.6 *-(----)-- 13.5 17.5 Procedure Procedure Types Cath Procedure Diagnostic Procedure LHC LHC w/Coronaries w/Grafts Sedation Charges Moderate Sedation up to 15 minutes Procedure Description Procedure Date Procedure Date: 01/19/2018 Procedure Start Time: 14:26 Procedure End Time: 14:48 Procedure Staff Name Function Melvin Mcleod MD Performing Physician Orlin Mcgregor RT Monitor Eugenio Espinoza RT Scrub Jose G Lorigan RN Nurse Procedure Data Cath Procedure Fluoroscopy Diagnostic fluoroscopy Total fluoroscopy Time: 6.6 time: 6.6 min min Diagnostic fluoroscopy Total fluoroscopy dose: 500 dose: 500 mGy mGy Contrast Material Contrast Material Type Amount (ml) Isovue 300 120 Entry Location Entry Primary Successful Side Size Upsize Upsize Entry Closure Succes sful Closure Location (Fr) 1 (Fr) 2 (Fr) Remarks Device Remarks Femoral Right 5 Fr Exoseal artery Estimated blood loss: 5 ml Diagnostic catheters Device Type Used For End Catheter Placement MULTIPACK JL 4.0 5Fr Procedure catheter DIAGNOSTIC AR MOD 5Fr Procedure Catheter ([id number]) DIAGNOSTIC IM 5Fr Procedure catheter ([id number]) MULTIPACK Pigtail 5 Fr Procedure catheter Procedure Complications No complications Procedure Medications Medication Administration Route Dosage 0.9% NaCl I.V. 100 ml/hr Oxygen etCO2 Nasal cannula 2 l/min Heparin Flush Bag added to field 2 bags (1000units/500ml NS) Lidocaine 2% added to field 20 Versed I.V. 2 mg Fentanyl I.V. 100 mcg Versed I.V. 1 mg Versed I.V. 1 mg Hemodynamics Rest HGB: 11.6 (g/dl) Heart Rate: 75 (bpm) Pressure Samples Time Site Value (mmHg) Purpose Heart Use Rate(bpm) 14:43 LV 158/2,19 Snapshot 89 14:43 AO 126/53(84) Pullback 88 14:43 LV 165/7,36 Pullback 88 Gradients Valve Time Site 1 Site 2 Mean SEP/DFP Peak To Heart Use (mmHg) (sec/min) Peak Rate (mmHg) (bpm) Aortic 14:43 LV AO 29 25 39 88 165/7,36 126/53(84) Calculations Valve P-P Mean Valve Index Valve Source Name Gradient Area Flow (cm2) Aortic 39 29 39 29 Snapshots Pre Cath Intra NCS Post Cath Vital Signs Time Heart Resp SPO2 etCO2 NIBP (mmHg) Rhythm Pain Sedation Rate (ipm) (%) (mmHg) Status Level (bpm) 14:11:22 74 17 94 37.7 144/66(110) NSR 0 (11) 10(A) , No pain 14:16:06 72 18 97 38.4 139/65(108) NSR 0 (11) 10(A) , No pain 14:20:53 78 18 91 46 126/68(114) NSR 0 (11) 10(A) , No pain 14:26:13 86 14 95 45.2 141/64(99) NSR 0 (11) 10(A) , No pain 14:30:53 89 17 96 0 120/69(109) NSR 0 (11) 9(A) , No pain 14:35:34 92 18 97 43.7 123/66(109) NSR 0 (11) 9(A) , No pain 14:40:12 92 14 97 41.4 127/72(108) NSR 0 (11) 9(A) , No pain 14:44:53 90 11 98 42.9 126/61(103) NSR 0 (11) 10(A) , No pain Medications Time Medication Route Dose Verified Delivered Reason Notes Eff ectiveness by by 14:09:53 0.9% NaCl I.V. 100 Jose G Jose G Per ml/hr Luis A Gunn physician RN RN 14:10:01 Oxygen etCO2 2 Jose G Jose G Per Nasal l/min Luis A Gunn physician cannula RN RN 14:10:11 Heparin Flush added 2 Jose G Jose G used for Bag to bags Lorigan Lorigan procedure (1000units/500ml field RN RN NS) 14:10:21 Lidocaine 2% added 20ml Jose G Jose G for local to vial Lorigan Lorigan anesthetic field RN RN 14:23:31 Versed I.V. 2 mg Jose G Jose G for Lorigan Lorigan sedation RN RN 14:23:39 Fentanyl I.V. 100 Jose G Jose G for mcg Lorigan Lorigan sedation RN RN 14:29:18 Versed I.V. 1 mg Jose G Jose G for Lorigan Lorigan sedation RN RN 14:41:07 Versed I.V. 1 mg Jose G Jose G for Lorigan Lorigan sedation RN sheet metal mechanic Log Time Note 13:45:36 Jose G Gunn RN sent for patient. Start room use. 14:03:14 Informed consent obtained and on chart 14:03:18 Admit Source: Other 14:03:34 Diagnostic Cath status Elective 14:03:41 Time tracking: Regular hours (M-F 7:00 - 5:00) 14:03:47 Plan of Care:Hemodynamics will remain stable., Cardiac rhythm will remain stable., Comfort level will be maintained., Respiratory function will remain adequate., Patient/ family verbilizes understanding of procedure., Procedure tolerated without complication., Recovers from procedure without complications.. 14:03:52 Patient received from Pre/Post Procedure Room to CCL 1 Alert and oriented. Tansferred to table in Supine position. 14:03:54 Warm blankets applied, and jj hugger turned on for patient comfort. 14:03:54 Correct patient and procedure confirmed by team. 14:03:55 ECG and BP/O2 sat monitors applied to patient. 14:04:09 H&P Date Dictated: 01/12/2018 Within 30 days and on chart., H&P Addendum completed by physician on day of procedure. (MUST COMPLETE FOR ALL OUTPATIENTS). 14:04:10 Pre-procedure instructions explained to patient. 14:04:10 Pre-op teaching completed and patient verbalized understanding. 14:04:12 Family in waiting room. 14:04:13 Patient NPO since Midnight. 14:09:53 0.9% NaCl 100 ml/hr I.V. was administered by Jose G Gunn RN; Per physician; 14:10:01 Oxygen 2 l/min etCO2 Nasal cannula was administered by Jose G Gunn RN; Per physician; 14:10:11 Heparin Flush Bag (1000units/500ml NS) 2 bags added to field was administered by Jose G Gunn RN; used for procedure; 14:10:21 Lidocaine 2% 20ml vial added to field was administered by Jose G Gunn RN; for local anesthetic; 14:10:28 Vital chart was started 14:10:59 Baseline sample Acquired. 14:11:04 Rhythm: sinus rhythm 14:11:06 Full Disclosure recording started 14:11:22 Patient allergic to Other allergyACE Inhibitors 14:11:24 Is the patient allergic to Iodine/contrast media? No. 14:11:25 Is patient on blood thinner?Yes 14:11:27 ACC The patient was administered the following blood thiners within the last 24 hours: ACCPlavix 14:11:59 Patient diabetic? No. 14:12:03 Previous problem with sedation/anesthesia? No ? 14:13:13 Snore? Yes 14:13:17 Sleep apnea? No 14:13:22 Deviated septum? No 14:13:26 Opens mouth fully? Yes 14:13:26 Sticks out tongue? Yes 14:13:30 Airway obstruction? No ? 14:13:31 Dentures? No ? 14:13:34 Pre procedure: right dorsailis pedis pulse 2+ Normal; easily identifiable; not easily obliterated 14:13:35 Patient pain scale 0/10 ?. 14:16:40 IV patent on arrival in left forearm with 0.9% NaCl at [facility]. 14:17:59 Lab Result : BUN 26 mg/dl 14:17:59 Lab Result : Hemoglobin 11.6 g/dl 14:17:59 Lab Result : Creatinine 1 mg/dl 14:17:59 Lab Result : Hematocrit 32.8 % 14:18:02 Lab results completed and on chart. 14:18:06 Right groin area was prepped with chlora-prep and draped in sterile fashion 14:18:07 Alarms reviewed by R. N. 14:18:08 Sharps counted by scrub and verified by R.N. 14:19:09 Physician arrived 14:19:14 Use device set Femoral Dx 14:19:15 ACIST Syringe (33392) opened to sterile field. 14:19:16 Bag Decanter (2002S) opened to sterile field. 14:19:17 Medline Cath Pack ([id number]) opened to sterile field. 14:19:18 ACIST Hand Control (95073) opened to sterile field. 14:19:18 ACIST Manifold (02239) opened to sterile field. 14:19:19 Tegaderm 4 x 4 (1626W) opened to sterile field. 14:19:23 SHEATH Prelude 5Fr 0.035 (CXR-5Z-24-035) opened to sterile field. 14:19:25 DIAGNOSTIC Multipack 5Fr catheter set ([id number]) opened to sterile field. 14:19:26 DIAGNOSTIC WIRE .035 260cm J wire (676994) opened to sterile field. 14:19:37 --------ALL STOP TIME OUT------ 14:19:38 Final Timeout: patient, procedure, and site verified with staff and physician. All members of the team are in agreement. 14:19:40 Right groin site verified by team. 14:19:43 Physical assessment completed. ASA score P 2 - A patient with mild systemic disease as per Melvin Mcleod MD. 14:19:47 Sedation plan: IV Moderate Sedation Medication:Versed, Fentanyl 14:22:09 Zero performed for pressure channel P1 14:22:12 Zero performed for pressure channel P1 14::31 Versed 2 mg I.V. was administered by Jose G Gunn RN; for sedation; 14:23:39 Fentanyl 100 mcg I.V. was administered by Jose G Gunn RN; for sedation; 14:26:27 Procedure started. 14::31 Local anesthetic to right femoral artery with Lidocaine 2% by Melvin Mcleod MD.INITIAL ACCESS ONLY 14:26:48 A 5 Fr sheath was inserted into the Right Femoral artery 14:29:18 Versed 1 mg I.V. was administered by Jose G Gunn RN; for sedation; 14:29:20 A MULTIPACK JL 4.0 5Fr catheter was advanced over the wire and used for Procedure. 14:29:59 LCA angiography performed. 14:30:46 Catheter exchanged over wire. 14:31:45 A DIAGNOSTIC AR MOD 5Fr Catheter ([id number]) was advanced over the wire and used for Procedure. 14:31:59 SVG to OM angiography performed. 14:33:01 SVG to RCA angiography performed. 14:34:57 RCA angiography performed. 14:35:01 Catheter exchanged over wire. 14:35:29 A DIAGNOSTIC IM 5Fr catheter ([id number]) was advanced over the wire and used for Procedure. 14:39:08 STANTON to LAD angiography performed. 14:40:21 Catheter exchanged over wire. 14:40:28 A MULTIPACK Pigtail 5 Fr catheter was advanced over the wire and used for Procedure. 14:41:07 Versed 1 mg I.V. was administered by Jose G Gunn RN; for sedation; 14:43:13 LV gram done using DUMAS 14:43:15 Injector settings: Ml/sec: 10, Volume: 20, 14:43:20 EF : 60 % 14:44:50 LV hemodynamics recorded. 14:44:51 Catheter removed. 14:44:54 EXOSEAL 5Fr (EX500) opened to sterile field. 14:45:02 Sheath removed intact; hemostasis achieved with Exoseal to the Right Femoral artery. 14:45:03 Procedure ended.(Physican Out) 14:46:29 Fluoroscopy time 06.60 minutes. 14:46:33 Flurop Dose total: 500 14:46:33 Fluoroscopy dose: 500 mGy 14:46:54 Contrast amount:Isovue 300 120ml. 14:47:40 Sharps counted by scrub and verified by R.N. 14:47:42 Insertion/operative site no bleeding no hematoma. 14:47:49 Post-op/insertion site Right Femoral artery dressed using a 4 x 4 and Tegaderm. 14:47:53 Post right femoral artery:stable, soft, clean and dry 14:47:56 Post Procedure Pulses reassessed and unchanged 14:47:59 Post-procedure physical assessment completed. ASA score P 2 - A patient with mild systemic disease as per Melvin Mcleod MD. 14:48:02 Post procedure rhythm: unchanged. 14:48:07 Estimated blood loss: 5 ml 14:48:09 Post procedure instruction explained to patient.Patient verbalizes understanding. 14:48:09 Patient needs reinforcement of post procedure teaching. 14:48:28 Procedure type changed to Cath procedure, Diagnostic procedure, LHC, LHC w/Coronaries w/Grafts, Sedation Charges, Moderate Sedation up to 15 minutes 14:48:45 Procedure and supply charges have been captured, reviewed, submitted and are correct. 14:48:47 Procedure Complication : No complications 14:48:49 Vital chart was stopped 14:48:49 See physician's report for complete and final results. 14:48:50 Report given to Pre/Post Procedure Room. 14:48:53 Patient transfered to Pre/Post Procedure Room with Stretcher. 14:48:54 Procedure ended. 14:48:54 Full Disclosure recording stopped 14:48:57 End room use (Document Last) Device Usage Item Name Manufacture Quantity Catalog Number Hospital Part Current M inimal Lot# / Charge Number Stock Stock Serial# Code ACIST Syringe Acist 1 42466 647721 073776 071395 2 0 (01088) [employer] Bag Decanter Microtek 1 118350 68959 364978 5 () Medical Inc. Medline Cath Cardinal 1 [id number] 231026 82064 422234 5 [facility] ([id number]) ACIST Hand Acist 1 03115 908029 660093 898599 5 Control (95325) [employer] ACIST Manifold Acist 1 14767 273142 954245 634860 5 (20216) [employer] Tegaderm 4 x 4 3M 1 1626W 471420 421348 372307 5 (1626W) SHEATH Prelude Merit 1 [id number]-[id number] 136629 382606 113475 5 5Fr 0.035 Medical (EGJ-4O-90-035) DIAGNOSTIC Cardinal 1 [id number] 047944 20766 210460 3 0 Multipack 5Fr Health catheter set ([id number]) DIAGNOSTIC WIRE [facility] 1 039509 807619 212873 624847 3 0 .035 260cm J wire (914764) MULTIPACK JL Cardinal 1 164369 5 4.0 5Fr Health catheter DIAGNOSTIC AR Cardinal 1 [id number] 934217 979190 061106 1 5 MOD 5Fr Health Catheter ([id number]) DIAGNOSTIC IM Cardinal 1 [id number] 431931 663643 668483 5 5Fr catheter Health ([id number]) MULTIPACK Cardinal 1 [id number] 5 Pigtail 5 Fr Health catheter EXOSEAL 5Fr Cardinal 1 EX500 414973 662119 753058 1 0 (EX500) Health Signature Audit [place] Stage Time Signature Unsigned Intra-Procedure 01/19/2018 Orlin Mcgregor 2:51:51 PM RT(R) Signatures Monitor : Orlin Mcgregor RT Signature : Date : Time : [id number] [place] [address]
[~2018-01-19 11:25] MED LIST changes: -COZAAR100 MG PO; -FUROSEMIDE40 MG PO
[2018-01-19 12:33] VITALS: BP 139/74; Ht 162.6 cm; Wt 77.7 kg
[2018-01-19 12:45] LABS: BASOPHILS 0.3 % (0-2); EOSINOPHILS 2.4 % (0-7); HEMATOCRIT 32.8 % (36.0-48.0); HEMOGLOBIN 11.6 g/dL (12-16); IMMATURE GRANULOCYTES 0.2 % (0-5); LYMPHOCYTES 31.8 % (15-50); MCHC 35.4 g/dL (31.0-37.0); MCV 96.2 fL (80.0-100.0); MONOCYTES 5.7 % (2-11); NEUTROPHILS 59.6 % (40-80); PLATELET COUNT 175 10x3/uL (130-400); RBC 3.41 10x6/uL (4.00-5.40); RDW 13.5 % (11.5-14.5); WBC 5.8 10x3/uL (4.8-10.8)
[2018-01-19] MEDS ORDERED: COZAAR100 MG PO (12:45)
[2018-01-19] MEDS ORDERED: FUROSEMIDE40 MG PO (12:45)
[2018-01-19 12:57] LABS: ANION GAP 11.1 mmol/L (8-16); CALCIUM 8.7 mg/dL (8.5-10.1); CARBON DIOXIDE 26.2 mmol/L (21.0-32.0); POTASSIUM - SERUM 4.3 mmol/L (3.5-5.1)
== END 2018-01-19 17:00 | disposition home or self-care (01) ==
LOC: D.CATH 11:25
PROVIDERS: Internal Medicine Cardiovascular Disease
DX: I25.119 Atherosclerotic heart disease of native coronary artery with unspecified angina pectoris (principal); Z95.1 Presence of aortocoronary bypass graft; Z01.812 Encounter for preprocedural laboratory examination

== ENCOUNTER → 2018-03-07 15:12 | Outpatient (CLI) | payer MEDICARE, OTHER ==
[2018-01-19 12:33] VITALS: BMI 29.4
[~2018-03-07 15:12] MED LIST changes: +COZAAR100 MG PO; +FUROSEMIDE40 MG PO
== END | disposition home or self-care (01) ==
LOC: D.CT 15:12
DX: R91.1 Solitary pulmonary nodule (principal)

== ENCOUNTER → 2018-03-17 08:23 | Outpatient (CLI) | payer MEDICARE, OTHER ==
[2018-01-19 12:33] VITALS: BMI 29.4
== END | disposition home or self-care (01) ==
LOC: D.ECHO 08:23
DX: R06.02 Shortness of breath (principal)

== ENCOUNTER → 2018-05-02 10:36 | Outpatient (CLI) | payer MEDICARE, OTHER ==
[2018-01-19 12:33] VITALS: BMI 29.4
== END | disposition home or self-care (01) ==
LOC: D.CT 10:36
DX: I65.23 Occlusion and stenosis of bilateral carotid arteries (principal)

== ENCOUNTER 2018-05-10 05:00 | Inpatient (IN) | payer MEDICARE, OTHER ==
[2018-05-06 13:12] LABS: HEMATOCRIT 35.3 % (36.0-48.0); HEMOGLOBIN 12.2 g/dL (12-16); MCH 33.6 pg (26.0-34.0); MCHC 34.6 g/dL (31.0-37.0); MCV 97.2 fL (80.0-100.0); MEAN PLATELET VOLUME 10.7 fL (7.4-10.4); RBC 3.63 10x6/uL (4.00-5.40); RDW 13.7 % (11.5-14.5); WBC 6.1 10x3/uL (4.8-10.8)
[2018-05-06 13:51] LABS: ALBUMIN 3.9 g/dL (3.4-5.0); ANION GAP 12.1 mmol/L (8-16); BILIRUBIN - TOTAL 0.42 mg/dL (0.2-1.3); CALCIUM 8.9 mg/dL (8.5-10.1); CARBON DIOXIDE 26.1 mmol/L (21.0-32.0); CREATININE - SERUM 0.9 mg/dL (0.6-1.3); INR 1.03 (0.85-1.17); POTASSIUM - SERUM 4.2 mmol/L (3.5-5.1); PROTEIN - SERUM 7.8 g/dL (6.4-8.2)
[2018-05-06 14:05] LABS: APPEARANCE CLEAR (CLEAR); BILIRUBIN NEGATIVE (NEGATIVE); COLOR YELLOW (YELLOW); GLUCOSE NEGATIVE (NEGATIVE); KETONE NEGATIVE (NEGATIVE); NITRITE NEGATIVE (NEGATIVE); PROTEIN NEGATIVE (NEGATIVE); SPECIFIC GRAVITY 1.025 (1.005-1.020); UROBILINOGEN NORMAL (NORMAL)
[~2018-05-10] VITALS: Ht 162.6 cm; Wt 78.1 kg
[2018-05-10] VITALS (59 sets, daily range): BP systolic 96–141; BP diastolic 37–68; BMI 29.2; BMI 30.1
--- NOTE | ~2018-05-10 | HP ---
PATIENT: CATERINA HORTON MEDICAL RECORD: [id number] ACCOUNT: [id number] LOCATION:[facility]- : [birth year] ADMISSION DATE: 05/10/18 PCP: RAFAEL LI MD HISTORY AND PHYSICAL EXAMINATION CATERINA Yao (72yo, F) ID# [id number]. Date/Time05/05/2018 10:92FDGSN53/08/194Service Dept.NPP_[facility] ClinicProviderEDSONYA LI MDInsuranceMed Primary: [place] ([place]ARE) Insurance # : [id number] Referring Provider Name : SHAKA PRINGLE Employer Name : RETIRED Med Secondary: [employer] (MEDICARE SUPPLEMENT) Insurance # : [id number] Employer Name : RETIRED Med : [employer] (MEDICARE SUPPLEMENT) Insurance # : [id number] Employer Name : RETIRED Prescription: CMX - Member is eligible. Chief Complaint Followup: Coronary atherosclerosis 6 month f/u with CTA carotid Patient's Care Team Referring Provider (): SHAKA PRINGLE: [address] [place] [phone], , Resident In Diagnostic Radiology: AURELIA CONN MD: [address] [place] [phone], , Patient's Pharmacies [facility] (ERX): [address] [place] [phone], , [facility] (MAIL-ORDER, ERX): [address] [facility] [id number], , Vitals BP:136/74 sitting L arm 05/05/2018 10:32 amHR:62 reg 05/05/2018 10:32 amHt:5 ft 4 in 05/05/2018 10:16 amAllergies Reviewed Allergies NORMAN INHIBITORSSome allergies listed in Document: #[id number] could not be added to this patient's chart. Please review this document and add these allergies to the patient's chart manually as needed.Medications Reviewed Medications aspirin 81 mg chewable /06/18 enteredJamie HughesBystolic 10 mg osywvc32/23/18 filledCaremarkcholecalciferol (vitamin D3) 1,000 unit nplgxev21/06/18 enteredJamie Hughescitalopram 20 mg /24/18 filledCaremarkclopidogrel 75 mg /05/18 filledCaremarkdilTIAZem CD 180 mg capsule,extended release 24 hr04/05/18 filledCaremarkfamotidine 20 mg tablet Take 1 tablet(s) twice a day by oral route.02/02/17 enteredKathy Wilsonfurosemide 40 mg tablet Take 1 tablet(s) every day by oral route for 14 days.04/27/18 filledCaremarkLactobacillus acidophilus 10 billion cell /06/18 enteredJamie Laishalevothyroxine 25 mcg aaqhpv33/06/17 filledCaremarkLyrica 75 mg semyzdv28/16/18 filledCaremarkmelatonin 10 mg sqkogn84/06/18 enteredJamie Laishapotassium chloride ER 20 mEq tablet,extended release(part/cryst)02/20/17 filledCaremarkpravastatin 20 mg ipghkw30/06/18 filledCaremarksucralfate 1 gram sqrxxy10/16/18 filledCaremarkSynthroid 50 mcg tvbhdy04/13/18 filledCaremarkvalsartan 320 mg svybfj20/03/17 filledCaremarkVaccines Reviewed Vaccines HISTORY AND PHYSICAL [id number] CATERINA HORTON Vaccine TypeDateAmt.RouteSiteLot #Mfr.Exp. DateDate on VISVIS GivenVaccinatorInfluenzainfluenza, seasonal, xdckvaveps67/30/11Village YkbrgvcsysHepsfkzjugfovdxdsvyeioss52/30/11Village HealthmartSome vaccines listed in Document: #[id number] could not be added to this patient's chart. Please review this document and add these vaccines to the patient's chart manually as needed. Problems Reviewed Problems Hypothyroidism Hypertensive disorder Peripheral arterial occlusive disease Disorder of carotid artery Carotid artery stenosis - Onset: 02/05/2017 Tricuspid valve regurgitation - Onset: 02/05/2017 Mitral valve regurgitation - Onset: 02/05/2017 Aortic valve stenosis - Onset: 02/05/2017 Abnormal glucose level Acute renal failure syndrome Anxiety state Osteoarthritis of knee Pure hypercholesterolemia Solitary nodule of lung - Onset: 02/02/2017 Coronary atherosclerosis Hyperlipidemia Acute myocardial infarction Acute stress disorder Disorder of tendon Benign hypertensive heart disease without congestive heart failure Benign neoplasm of colon Family History Reviewed Family History Unspecified Relation- Myocardial infarction - previously recorded as Heart Attack ([place])Unspecified Relation- Malignant neoplastic disease - previously recorded as Cancer, otherUnspecified Relation- Hypertensive disorder - previously recorded as HypertensionSocial History Reviewed Social History General Marital status: General stress level: High Smoking Status: Former smoker (Notes: quit >10yrs) Alcohol intake: Occasional is primary certified caregiver to who requires home care after cva 24-7 Surgical History Reviewed Surgical History CABG - 02/12/2017 HOSPICE MANAGER History (not configured) Past Medical History Reviewed Past Medical History HISTORY AND PHYSICAL [id number] CATERINA HORTON Cancer: Y High Blood Pressure: Y Thyroid Problems: Y Notes: hyperlipidemia, coronary artery disease, hx of angioplasty, stenting 2010, skin cancer L eyelid, Documents for Discussion Discussed the following documents: CT, ANGIOGRAM, CAROTID ARTERIES, W/WO CONTRAST - 05/02/18 Screening None recorded. HPI Dyspnea Reported by patient. Quality: dyspnea Severity: moderate Onset/Timing: daily Context: with activity Carotid artery disease ROS Patient reports exercise intolerance but reports no fever, no night sweats, no significant weight gain, and no significant weight loss; easy fatigability. She reports shortness of breath when walking but reports no chest pain, no arm pain on exertion, no shortness of breath when lying down, no palpitations, and no known heart murmur. She reports shortness of breath but reports no cough, no wheezing, and no coughing up blood. She reports dizziness but reports no loss of consciousness, no weakness, no numbness, no seizures, and no headaches. She reports no dry eyes, no irritation, and no vision change. She reports no difficulty hearing and no ear pain. She reports no frequent nosebleeds and no nose/sinus problems. She reports no sore throat, no bleeding gums, no snoring, no dry mouth, no mouth ulcers, no oral abnormalities, and no teeth problems. She reports no jugula r vein distension and no swollen glands. She reports no abdominal pain, no vomiting, normal appetite, no diarrhea, not vomiting blood, no nausea, and no constipation. She reports no incontinence, no difficulty urinating, no hematuria, and no increased freq u ency. She reports no muscle aches, no muscle weakness, no arthralgias/joint pain, no back pain, and no swelling in the extremities. She reports no abnormal mole, no jaundice, and no rashes. She reports no depression, no sleep disturbances, feeling safe in relationship, and no alcohol abuse. She reports no fatigue. She reports no swollen glands and no bruising. She reports no runny nose, no sinus pressure, no itching, no hives, and no frequent sneezing. ROS as noted in the HPI Physical Exam Patient is a 72-year-old female. Constitutional: General Appearance healthy-appearing, well developed, and overweight. Level of Distress NAD. Ambulation ambulating normally. Cardiovascular: Apical Impulse not displaced or no thrill. Heart Auscultation normal s1 and s2, no rubs or gallops, and RRR and murmur (Mitral regurgitation). Arterial Pulses no abdominal aorta bruits, femoral bruits, or popliteal bruits and 2+ bilateral, carotid 2+ bilateral, femoral 2+ bilateral, popliteal 2+ bilateral, and dorsalis pedis 2+ bilateral. Edema no edema or varicosities. Lungs: Repiratory Effort no dyspnea. Percussion no hyperresonance or dullness or flatness. Auscultation no wheezing, rhonchi, or rales / crackles and breathing sounds normal, good air movement, and CTA except as noted. HISTORY AND PHYSICAL [id number] CATERINA HORTON Abdomen: Bowl Sounds normal. Inspection and Palpation no tenderness, guarding, masses, or rebound tenderness and soft and non-distended. Liver non-tender and no hepatomegaly. Spleen non-tender and no splenomegaly. Hernia none palpable. Musculoskeletal System: Gait And Stance normal gait and stance. Digits and Nails normal nails and no cyanosis. Neurologic: Cranial Nerves grossly intact. Reflexes DTRs 2+ bilaterally throughout. Sensation grossly intact. Lymph Nodes: Lymph Nodes no cervical LAD, supraclavicular LAD, axillary LAD, or inguinal LAD. Eyes: Lids and Conjunctivae no discharge or pallor and non-injected. Pupils PERRLA. Cornea grossly intact. EOM EOMI. Lens clear. Sclera non-icteric. Neck: Neck no masses or enlarged lymph nodes and supple, trachea midline, and carotid bruits (bilateral). Thyroid no enlargement or nodules and non-tender. Skin: Inspection and Palpation no rash, lesions, ulcers, jaundice, or abnormal nevi. Assessment / Plan Carotid artery disease 1. Coronary atherosclerosis I25.10: Atherosclerotic heart disease of [place] coronary artery without angina pectoris Discussion Notes Carotid artery disease Right internal carotid artery I have discussed her disease process with her in detail as well as the alternative methods of treatment we discussed right carotid endarterectomy including the expected benefits and risks which include bleeding, infection, stroke, , and the imponderables. She understands all of the above and wishes to proceed with planned surgery Return to Office None recorded. RAFAEL LI MD CC: [id number] DICTATION DATE: 05/05/18 1020 TIME STUDY OBSERVER: DM 05/10/18 0937 ADM IN [facility] [address] [id number]
--- NOTE | ~2018-05-10 | MORECARE ---
CASE MANAGEMENT DISCHARGE SUMMARY PATIENT: CATERINA HORTON UNIT: [id number] ADM DATE: 05/10/18 AGE: 72 : 46 SEX: F ROOM/BED: [facility] AUTHOR: PABLO WORKMAN PHYSICIAN: REFERRING PHYSICIAN: RAFAEL LI MD DATE OF SERVICE: 05/12/18 Discharge Plan Patient Name: CATERINA HORTON Facility: [facility]:[place] : 1945 Planned Disposition: Home Anticipated Discharge Date: 05/12/18 Discharge Date: Expected LOS: 2 Initial Reviewer: [email or web address] Initial Review Date: 05/12/2018 Generated: 05/12/18 11:49 am Coverage Notice Reviewer: [email or web address] Jeanne Dorado Notice Issued Date-Time: 05/12/2018 10:07 Notice Type: IM Discharge Notice Notice Delivered To: Patient Relationship to Patient: Self X Ray Examiner Of Aircraft Name: Delivery Method: HAND - Hand Delivered Annelise Days: Prior Verbal Notification: Recipient Understood Notice: Yes Recipient Signature: Yes Med Rec Note Co-signed by Attending: Coverage Notice Comment: Patient Name: CATERINA HORTON Page [phone] at 1049 All edits/amendments must be made on the electronic document DICTATION DATE: 05/12/18 1049 EMBLEM FUSER TENDER: STEPHANI 05/12/18 1049 RPT#: [id number] DC DATE: STATUS: ADM IN [place] [address] [place] [address] END OF REPORT
--- NOTE | ~2018-05-10 | MORECARE ---
CASE MANAGEMENT DISCHARGE SUMMARY PATIENT: CATERINA HORTON UNIT: [id number] ADM DATE: 05/10/18 AGE: 72 : 46 SEX: F [facility] AUTHOR: JACINTA,DOC PHYSICIAN: REFERRING PHYSICIAN: RAFAEL LI MD DATE OF SERVICE: 05/12/18 Discharge Plan Patient Name: CATERINA HORTON Facility: [facility]:[place] : 1945 Planned Disposition: Home Anticipated Discharge Date: 05/12/18 Discharge Date: Expected LOS: 2 Initial Reviewer: [email or web address] Initial Review Date: 05/12/2018 Generated: 05/12/18 11:56 am Comments DCP- Discharge Planning Updated by [email or web address]: Sandra Dorado on 05/12/18 9:[address] Patient Name: CATERINA HORTON Admission Status: Urgent Accout number: [id number] Admission Date: 05-10-2018 : 1945 Admission Diagnosis: Attending: RAFAEL LI Current LOS: 2 Anticipated DC Date: 05-12-2018 Planned Disposition: Home Primary Insurance: MEDICARE A & B Discharge Planning Comments: CM MET WITH PATIENT AT BEDSIDE. PATIENT PLANS ON RETURNING TO HER HOME IN WHICH SHE HAS A FRIEND STAYING WITH HER. PATIENT DENIES ANY DISCHARGE NEEDS. IMM EXPLAINED AND SERVED @[facility]. CM WILL CONTINUE TO FOLLOW AND ASSIST NEEDED WITH DISCHARGE PLANNING / NEEDS. Full Service Supervisor: Sandra Dorado DCPIA - Discharge Planning Initial Assessment Updated by [email or web address]: Sandra Dorado on 05/12/18 10:51 am * Is the patient Alert and Oriented? Yes * How many steps to enter\exit or inside your home? * PCP DR. PRINGLE * Pharmacy [facility] [place] * Preadmission Environment Home with Family * ADLs Independent * Equipment Cane * List name and contact numbers for known caregivers / representatives who currently or will assist patient after discharge: KENYATTAEvelia ARZATE -CINTHYA- [phone] OR [phone] * Verbal permission to speak to the caregivers and representatives has been obtained from the patient. N/A * Community resources currently utilized None * Additional services required to return to the preadmission environment? No * Can the patient safely return to the preadmission environment? Yes * Has this patient been hospitalized within the prior 30 days at any hospital? No Coverage Notice Reviewer: [email or web address] Jeanne Dorado Notice Issued Date-Time: 05/12/2018 10:07 Notice Type: IM Discharge Notice Notice Delivered To: Patient Relationship to Patient: Self Critical Power Install Technician Name: Delivery Method: HAND - Hand Delivered Annelise Days: Prior Verbal Notification: Recipient Understood Notice: Yes Recipient Signature: Yes Med Rec Note Co-signed by Attending: Coverage Notice Comment: Last DP export: 05/12/18 9:49 Patient Name: CATERINA HORTON Page [id number] at 1056 All edits/amendments must be made on the electronic document DICTATION DATE: 05/12/18 1056 FIRE WATCHMAN: STEPHANI 05/12/18 1056 RPT#: [id number] DC DATE: STATUS: ADM IN [facility] [address] [place] [address] END OF REPORT
--- NOTE | ~2018-05-10 | MORECARE ---
CASE MANAGEMENT DISCHARGE SUMMARY PATIENT: CATERINA HORTON UNIT: [id number] ADM DATE: 05/10/18 AGE: 72 : 46 SEX: F [facility] AUTHOR: JACINTA,DOC PHYSICIAN: REFERRING PHYSICIAN: RAFAEL LI MD DATE OF SERVICE: 05/12/18 Discharge Plan Patient Name: CATERINA HORTON Facility: [facility]:[place] : 1945 Planned Disposition: Home Anticipated Discharge Date: 05/12/18 Discharge Date: 05/12/2018 Expected LOS: 2 Initial Reviewer: [email or web address] Initial Review Date: 05/12/2018 Generated: 05/12/18 4:45 pm Comments DCP- Discharge Planning Updated by [email or web address]: Sandra Dorado on 05/12/18 9:[address] Patient Name: CATERINA HORTON Admission Status: Urgent Accout number: [id number] Admission Date: 05-10-2018 : 1945 Admission Diagnosis: Attending: RAFAEL LI Current LOS: 2 Anticipated DC Date: 05-12-2018 Planned Disposition: Home Primary Insurance: MEDICARE A & B Discharge Planning Comments: CM MET WITH PATIENT AT BEDSIDE. PATIENT PLANS ON RETURNING TO HER HOME IN WHICH SHE HAS A FRIEND STAYING WITH HER. PATIENT DENIES ANY DISCHARGE NEEDS. IMM EXPLAINED AND SERVED @[facility]. CM WILL CONTINUE TO FOLLOW AND ASSIST NEEDED WITH DISCHARGE PLANNING / NEEDS. Utility Arborist: Sandra Dorado DCPIA - Discharge Planning Initial Assessment Updated by [id number]: Sandra Dorado on 05/12/18 10:51 am * Is the patient Alert and Oriented? Yes * How many steps to enter\exit or inside your home? * PCP DR. PRINGLE * [facility]acy [facility] [place] [place] * Preadmission Environment Home with Family * ADLs Independent * Equipment Cane * List name and contact numbers for known caregivers / representatives who currently or will assist patient after discharge: KENYATTA ARZATE -CINTHYA- [phone] OR [phone] * Verbal permission to speak to the caregivers and representatives has been obtained from the patient. N/A * Community resources currently utilized None * Additional services required to return to the preadmission environment? No * Can the patient safely return to the preadmission environment? Yes * Has this patient been hospitalized within the prior 30 days at any hospital? No Coverage Notice Reviewer: [id number] Jeanne Dorado Notice Issued Date-Time: 05/12/2018 10:07 Notice Type: IM Discharge Notice Notice Delivered To: Patient Relationship to Patient: Self Hose Seamer Name: Delivery Method: HAND - Hand Delivered Annelise Days: Prior Verbal Notification: Recipient Understood Notice: Yes Recipient Signature: Yes Med Rec Note Co-signed by Attending: Coverage Notice Comment: Last DP export: 05/12/18 9:56 Patient Name: CATERINA HORTON Page [id number] at 1545 All edits/amendments must be made on the electronic document DICTATION DATE: 05/12/18 1545 LEAD NITRATE PROCESSOR: STEPHANI 05/12/18 1545 RPT#: [id number] DC DATE:05/12/18 STATUS: DIS IN [facility] [address] [place] [address] END OF REPORT
--- NOTE | ~2018-05-10 | OP ---
PATIENT NAME: CATERINA HORTON MEDICAL RECORD: [id number] :[birth year] [facility]ATION[facility] ADMISSION DATE:05/10/18 SURGEON: DEXTER LI MD DATE OF OPERATION: 05/10/2018 SURGEON: Dexter Li MD ANESTHESIA: General, Justin Jansen MD OPERATION PERFORMED: Right carotid endarterectomy with patch angioplasty. PREOPERATIVE DIAGNOSIS: Severe right internal carotid artery stenosis. POSTOPERATIVE DIAGNOSIS: Severe right internal carotid artery stenosis. INDICATION FOR OPERATION: Severe right internal carotid artery stenosis. FINDINGS AT OPERATION: Severe right internal carotid artery stenosis. There were no EEG changes with clamping or unclamping of the carotid artery. ESTIMATED BLOOD LOSS: Less than 100 cc. DESCRIPTION OF PROCEDURE: After informed consent, adequate preoperative medication, and evaluation, the patient was brought to the operating room and placed on the table in the supine position. After induction of general endotracheal anesthesia and application of appropriate monitoring devices, the right neck and chest were prepped and draped in sterile field utilizing Betadine scrub, alcohol, and Betadine solution. A Betadine-impregnated drape was also used. An oblique incision was made in the skin crease. Dissection was carried down to the fascia. Hemostasis was maintained with electrocautery. Facial vein was identified and divided. Utilizing sharp dissection, the common carotid, internal and external carotid arteries were dissected free of surrounding structures, protecting the neurological structures. The patient was given a calculated dose of heparin. After 3 minutes, clamps were applied. After 2 minutes, no EEG change. Arteriotomy was made and extended with Pineda scissors. Artery underwent endarterectomy sharply. Artery underwent extensive debridement and irrigation. Utilizing a vascular patch and a running 7-0 Prolene suture, the arteriotomy was closed with patch angioplasty technique. All maneuvers to remove trapped air were performed. Clamps were removed sequentially. There were no EEG changes. The patient was given a calculated dose of protamine to reverse the heparin. Hemostasis was achieved. A #7 Henri-Pitt drain was left in the depths of wound and brought out through the base of the neck. Neck was again irrigated. Instrument count and sponge count were correct times 2. Neck was closed in layers utilizing 3-0 Vicryl on the platysma and 5-0 subcuticular Monocryl on the skin. Sterile dressings were applied. The patient tolerated the procedure well and was transferred to CV ICU in satisfactory condition. TRANSINT:[id number] Voice Confirmation ID: [id number] DOCUMENT ID: [id number] OPERATIVE REPORT [id number] CATERINA HORTON EDWARD MD CC: [id number] DICTATION DATE: 05/10/18 1024 WRAPPER AND PRESERVER: 05/10/18 1124 ADM [address] [place] [address]
[2018-05-11] VITALS (80 sets, daily range): BP systolic 99–176; BP diastolic 40–73; Ht 162.6 cm; Wt 78.1 kg
[2018-05-12] VITALS (40 sets, daily range): BP systolic 109–142; BP diastolic 53–73
== END 2018-05-12 12:10 | disposition home or self-care (01) | DRG 39 ==
LOC: D.SDCHOLD 05:00 → D.CVICU 10:32 → D.SDCHOLD 10:59 → D.CVICU 11:01
PROVIDERS: Internal Medicine Cardiovascular Disease
PROC: 03UK0JZ Supplement Right Internal Carotid Artery with Synthetic Substitute, Open Approach (ICD-10-PCS; 2018-05-10)
PROC: 03CK0ZZ Extirpation of Matter from Right Internal Carotid Artery, Open Approach (ICD-10-PCS; principal; 2018-05-10 07:30)
DX: I65.21 Occlusion and stenosis of right carotid artery (principal); E78.5 Hyperlipidemia, unspecified; I25.10 Atherosclerotic heart disease of native coronary artery without angina pectoris; I10 Essential (primary) hypertension; E03.9 Hypothyroidism, unspecified; R91.1 Solitary pulmonary nodule; I73.9 Peripheral vascular disease, unspecified

== ENCOUNTER → 2019-02-20 10:15 | Outpatient (CLI) | payer MEDICARE, OTHER ==
[2018-05-11 10:34] VITALS: BMI 31.4
== END | disposition home or self-care (01) ==
LOC: D.RT 02-16 10:30
PROVIDERS: ATTEND Family Medicine
DX: R06.00 Dyspnea, unspecified (principal)

== ENCOUNTER 2019-03-10 10:30 | Outpatient (CLI) | payer MEDICARE, OTHER ==
[~2019-03-10] VITALS: Ht 162.6 cm; Wt 72.7 kg
--- NOTE | ~2019-03-10 | HEMODYNAMI ---
PATIENT:CATERINA HORTON MEDICAL RECORD: [id number] : 47 LOCATION:DMEET ADMISSION DATE: 03/10/19 Generatedon:03/10/201913:45 Patient name: CATERINA HORTON Patient #: [id number] SSN: [id number] : 1945 Date of study: 03/10/2019 Page: Of Hemodynamic Procedure Report Patient Data Patient Demographics Procedure consent was obtained First Name: CATERINA Gender: Female Last Name: CLIFFORD : 1945 [facility] Initial: J Age: 73 year(s) Patient #: [id number] Race: SSN: [id number] Additional ID: [id number] Contact details Address: [address] [place] [address] State: [place] City: [facility] Zip code: [address] Past Medical History Allergies Allergen Reaction Date Comments Reported Other allergy 01/26/2017 Baltazar Inhibitors Other allergy 01/19/2018 BALTAZAR Inhibitors Other allergy 03/10/2019 baltazar inhibitors Admission Admission Data Admission Date: 03/10/2019 Admission Time: 10:30 Lab Results Lab Result Date: 03/10/2019 Lab Result Time: 0:00 Biochemistry Name Units Result Min Max BUN mg/dl 24 --(----)-* 7 18 Creatinine mg/dl 0.9 --(-*--)-- 0.6 1.3 eGFR ml/min 64.87712 *-(----)-- 90 120 NONAFRICAN CBC Name Units Result Min Max Hemoglobin g/dl 11.2 *-(----)-- 13.5 17.5 Procedure Procedure Types Cath Procedure Diagnostic Procedure LHC Coronaries w/Grafts Aortic Root Angiography Sedation Charges Moderate Sedation up to 15 minutes Procedure Description Procedure Date Procedure Date: 03/10/2019 Procedure Start Time: 13:12 Procedure End Time: 13:41 Procedure Staff Name Function Angela Adair RT Monitor Ileana Shearer RN Nurse Melvin Mcleod MD Performing Physician Elham Alba RT Monitor Leyda Tirado RT Scrub Indication CABG Procedure Data Cath Procedure Fluoroscopy Diagnostic fluoroscopy Total fluoroscopy Time: 6.4 time: 6.4 min min Diagnostic fluoroscopy Total fluoroscopy dose: 558 dose: 558 mGy mGy Contrast Material Contrast Material Type Amount (ml) Isovue 300 105 Entry Location Entry Primary Successful Side Size Upsize Upsize Entry Closure Succes sful Closure Location (Fr) 1 (Fr) 2 (Fr) Remarks Device Remarks Femoral Right 5 Fr Exoseal artery Estimated blood loss: 5 ml Diagnostic catheters Device Type Used For End Catheter Placement MULTIPACK JL 4.0 5Fr Left Coronary catheter Angiography DIAGNOSTIC AR MOD 5Fr Procedure Catheter ([id number]) DIAGNOSTIC IMT 5Fr Procedure Catheter ([id number]) MULTIPACK Pigtail 5 Fr Procedure catheter DIAGNOSTIC AR MOD 5Fr Procedure Catheter ([id number]) Procedure Complications No complications Procedure Medications Medication Administration Route Dosage Oxygen etCO2 Nasal cannula 2 l/min Lidocaine 2% added to field 20 Heparin Flush Bag added to field 2 bags (1000units/500ml NS) 0.9% NaCl I.V. 100 ml/hr Versed I.V. 1 mg Versed I.V. 1 mg Fentanyl I.V. 50 mcg Fentanyl I.V. 50 mcg Versed I.V. 1 mg Versed I.V. 1 mg Hemodynamics Rest HGB: 11.2 (g/dl) Heart Rate: 67 (bpm) Pressure Samples Time Site Value (mmHg) Purpose Heart Use Rate(bpm) 13:29 LV 185/1,24 Snapshot 85 13:30 LV 193/1,26 Pullback 75 13:30 AO 152/57(98) Pullback 75 Gradients Valve Time Site 1 Site 2 Mean SEP/DFP Peak To Heart Use (mmHg) (sec/min) Peak Rate (mmHg) (bpm) Aortic 13:30 LV AO 38 24 41 75 193/1,26 152/57(98) Calculations Valve P-P Mean Valve Index Valve Source Name Gradient Area Flow (cm2) Aortic 41 38 41 38 Snapshots Pre Cath Intra NCS Post Cath Vital Signs Time Heart Resp SPO2 etCO2 NIBP (mmHg) Rhythm Pain Sedation Rate (ipm) (%) (mmHg) Status Level (bpm) 12:59:40 71 16 100 33.1 144/68(115) NSR 0 (11) 10(A) , No pain 13:03:59 62 14 98 35.4 126/53(91) NSR 0 (11) 10(A) , No pain 13:08:18 68 16 94 39.9 117/56(92) NSR 0 (11) 10(A) , No pain 13:12:32 75 14 95 36.9 135/70(113) NSR 0 (11) 9(A) , No pain 13:16:54 79 16 94 27.1 147/68(103) NSR 0 (11) 9(A) , No pain 13:21:18 82 18 96 36.9 134/68(103) NSR 0 (11) 9(A) , No pain 13:25:42 82 17 97 36.1 141/67(104) NSR 0 (11) 9(A) , No pain 13:29:58 76 12 98 37.6 128/75(92) NSR 0 (11) 10(A) , No pain 13:34:16 80 13 97 39.9 148/70(108) NSR 0 (11) 10(A) , No pain 13:38:39 79 14 95 34.6 147/72(110) NSR 0 (11) 10(A) , No pain Medications Time Medication Route Dose Verified Delivered Reason Notes Effe ctiveness by by 13:05:30 Oxygen etCO2 2 Melvin Buffie used for Nasal l/min Harsha Shearer RN procedure cannula 13:05:37 Lidocaine 2% added 20ml Melvin Melvin used for to vial Harsha Mcleod MD procedure field 13:05:44 Heparin Flush added 2 Melvin Melvin used for Bag to bags Harsha Mcleod MD procedure (1000units/500ml field NS) 13:05:53 0.9% NaCl I.V. 100 Melvin Buffie Per ml/hr Harsha Shearer RN physician 13:06:34 Versed I.V. 1 mg Melvin Buffie for Harsha Shearer RN sedation 13:06:43 Fentanyl I.V. 50 Melvin Buffie for mcg Harsha Shearer RN sedation 13:10:27 Fentanyl I.V. 50 Melvin Buffie for mcg Harsha Shearer RN sedation 13:10:37 Versed I.V. 1 mg Melvin Buffie for Mcleod MD Shearer RN sedation 13:21:28 Versed I.V. 1 mg Melvinluzma Tejeda for Harsha Shearer RN sedation 13:28:50 Versed I.V. 1 mg Melvinluzma Tejeda for Harsha Shearer RN sedation Procedure Log Time Note 12:50:18 Ileana Shearer RN sent for patient. Start room use. 12:54:41 Diagnostic Cath Status : Elective 12:55:57 Indication : CABG 12:56:13 Procedure Status Elective Heart Cath (OP). 12:56:22 Time tracking: Regular hours (M-F 7:00 - 5:00) 12:56:29 Plan of Care:Hemodynamics will remain stable., Cardiac rhythm will remain stable., Comfort level will be maintained., Respiratory function will remain adequate., Patient/ family verbilizes understanding of procedure., Procedure tolerated without complication., Recovers from procedure without complications.. 12:56:36 Patient received from Pre/Post Procedure Room to CCL 1 Alert and oriented. Tansferred to table in Supine position. 12:57:03 Signed procedure consent form obtained from patient. 12:57:04 Warm blankets applied, and jj hugger turned on for patient comfort. 12:57:05 Correct patient and procedure confirmed by team. 12:57:07 ECG and BP/O2 sat monitors applied to patient. 12:57:20 H&P Date Dictated: 03/10/2019 H&P Addendum completed by physician on da y of procedure. (MUST COMPLETE FOR ALL OUTPATIENTS), New H&P dictated by physician.. 12:57:22 Pre-procedure instructions explained to patient. 12:57:23 Pre-op teaching completed and patient verbalized understanding. 12:57:28 Family in waiting room. 12:57:31 Patient NPO since Midnight. 12:57:57 Patient allergic to Other allergyace inhibitors 12:58:10 Vital chart was started 13:01:01 Lab Result : eGFR NONAFRICAN 64.81755 ml/min 13:01:01 Lab Result : Hemoglobin 11.2 g/dl 13:01:01 Lab Result : BUN 24 mg/dl 13:01:01 Lab Result : Creatinine 0.9 mg/dl 13:02:21 Baseline sample Acquired. 13:02:29 Rhythm: sinus rhythm 13:02:31 Full Disclosure recording started 13:02:41 Is the patient allergic to Iodine/contrast media? No. 13:02:52 Is patient on blood thinner?Yes 13:02:58 ACC The patient was administered the following blood thiners within the last 24 hours: ACCPlavix 13:03:02 Patient diabetic? No. 13:03:05 ----Pre-sedation anethsthesia assessment.---- 13:03:10 Previous problem with sedation/anesthesia? No ? 13:03:12 Snore? Yes 13:03:14 Sleep apnea? No 13:03:16 Deviated septum? No 13:03:18 Opens mouth fully? Yes 13:03:20 Sticks out tongue? Yes 13:03:25 Airway obstruction? No ? 13:03:29 Dentures? No ? 13:03:31 - 13:03:38 Pre procedure: right dorsailis pedis pulse Doppler 13:03:42 Pre procedure: left dorsailis pedis pulse Doppler 13:03:48 Patient pain scale 0/10 ?. 13:04:00 IV patent on arrival in left forearm with 0.9% NaCl at [facility]. 13:04:07 Lab results completed and on chart. 13:04:11 Right groin area was prepped with chlora-prep and draped in sterile fashion 13:04:13 Alarms reviewed by R. N. 13:04:14 Sharps counted by scrub and verified by R.N. 13:04:15 Physician arrived 13:04:16 --------ALL STOP TIME OUT------ 13:04:17 Final Timeout: patient, procedure, and site verified with staff and physician. All members of the team are in agreement. 13:04:20 Right groin site verified by team. 13:04:27 Fire Safety Assessment: A--An alcohol-based skin anteseptic being used preoperatively., C--Open oxygen or nitrous oxide is being used., D--An ESU, laser, or fiber-optic light is being used. 13:04:31 Physical assessment completed. ASA score P 2 - A patient with mild systemic disease as per Melvin Mcleod MD. 13:04:51 2) 60-89 Mildly reduced kidney function, and other findings (as for stage 1) point to kidney disease. 13:04:57 Maximum allowable contrast dose (3.7 X eGFR X 0.75)180 ml. 13:05:04 Sedation plan: IV Moderate Sedation Medication:Versed, Fentanyl 13:05:14 Use device set Femoral Dx 13:05:16 ACIST Syringe (92512) opened to sterile field. 13:05:17 Bag Decanter (2002S) opened to sterile field. 13:05:18 Medline Cath Pack ([id number]) opened to sterile field. 13:05:20 ACIST Hand Control (91316) opened to sterile field. 13:05:21 ACIST Manifold (96463) opened to sterile field. 13:05:23 DIAGNOSTIC Multipack 5Fr catheter set (HA7375) opened to sterile field. 13:05:24 Tegaderm 4 x 4 (1626W) opened to sterile field. 13:05:26 SHEATH 5FR Tetonia ([id number]) opened to sterile field. 13:05:27 EMERALD Guide Wire (348-694) opened to sterile field. 13:05:30 Oxygen 2 l/min etCO2 Nasal cannula was administered by Ileana Shearer RN; used for procedure; Verbal order read back and verified. 13:05:37 Lidocaine 2% 20ml vial added to field was administered by Melvin Mcleod MD ; used for procedure; Verbal order read back and verified. 13:05:44 Heparin Flush Bag (1000units/500ml NS) 2 bags added to field was administered by Melvin Mcleod MD; used for procedure; Verbal order read back and verified. 13:05:53 0.9% NaCl 100 ml/hr I.V. was administered by Ileana Shearer RN; Per physician; Verbal order read back and verified. 13:06:34 Versed 1 mg I.V. was administered by Ileana Shearer RN; for sedation; Verbal order read back and verified. 13:06:43 Fentanyl 50 mcg I.V. was administered by Ileana Shearer RN; for sedation; Verbal order read back and verified. 13:08:46 Zero performed for pressure channel P1 13:08:57 Zero performed for pressure channel P1 13:09:09 Zero performed for pressure channel P1 13:10:27 Fentanyl 50 mcg I.V. was administered by Ileana Shearer RN; for sedation; Verbal order read back and verified. 13:10:37 Versed 1 mg I.V. was administered by Ileana Shearer RN; for sedation; Verbal order read back and verified. 13:12:47 Procedure started. 13:12:52 Local anesthetic to right femoral artery with Lidocaine 2% by Melvin ann MD.INITIAL ACCESS ONLY 13:14:05 ACC Patient presents with Stable Angina CCS Anginal Class 2--Slight limitation of ordinary activity. 13:14:39 ACCPatient has been prescribed/administered the following anti-anginal medication within the last 2 weeks: None 13:15:10 A 5 Fr sheath was inserted into the Right Femoral artery 13:15:23 A MULTIPACK JL 4.0 5Fr catheter was advanced over the wire and used for Left Coronary Angiography. 13:15:46 LCA angiography performed. 13:15:52 Injector settings: Ml/sec: 3, Volume: 6, 13:16:43 Catheter removed. 13:17:11 A DIAGNOSTIC AR MOD 5Fr Catheter ([id number]) was advanced over the wire and used for Procedure. 13:18:28 RCA angiography performed. 13:18:47 Injector settings: Ml/sec: 3, Volume: 6, 13:19:11 SVG to OM angiography performed. 13:19:53 SVG to RCA angiography performed. 13:20:27 Catheter removed. 13:20:48 A DIAGNOSTIC IMT 5Fr Catheter ([id number]) was advanced over the wire an d used for Procedure. 13:21:28 Versed 1 mg I.V. was administered by Ileana Shearer RN; for sedation; Verbal order read back and verified. 13:23:17 STANTON to LAD angiography performed. 13:23:35 Catheter removed. 13:24:04 A MULTIPACK Pigtail 5 Fr catheter was advanced over the wire and used for Procedure. 13:24:57 Aortic Root visualized 13:25:09 Injector settings: Ml/sec: 15, Volume: 30, 13:27:25 Catheter removed. 13:28:00 A DIAGNOSTIC AR MOD 5Fr Catheter ([id number]) was advanced over the wire and used for Procedure. 13:28:42 BENTSON 260 wire (L26210) opened to sterile field. 13:28:50 Versed 1 mg I.V. was administered by Ileana Shearer RN; for sedation; Verbal order read back and verified. 13:30:31 LV hemodynamics recorded. 13:31:04 EF : 40 % 13:31:29 Catheter removed. 13:31:38 EXOSEAL 5Fr (EX500) opened to sterile field. 13:31:59 Sheath removed intact; hemostasis achieved with Exoseal to the Right Femoral artery. 13:32:17 Procedure ended.(Physican Out) 13:32:42 Fluoroscopy time 06.40 minutes. 13:32:52 Fluoroscopy dose: 558 mGy 13:32:52 Flurop Dose total: 558 13:33:04 Dose Area Product 60655 mGy/cm. 13:33:23 Contrast amount:Isovue 300 105ml. 13:33:30 Maximum allowable dose exceeded? No. 13:33:32 Sharps counted by scrub and verified by R.N. 13:33:55 Insertion/operative site no bleeding no hematoma. 13:34:21 Post-op/insertion site Right Femoral artery dressed using a 4 x 4 and Tegaderm. 13:34:28 Post right femoral artery:stable 13:34:31 Post Procedure Pulses reassessed and unchanged 13:34:34 Post Procedure Pulses reassessed and unchanged 13:34:44 Post-procedure physical assessment completed. ASA score P 2 - A patient with mild systemic disease as per Melvin Mcleod MD. 13:34:51 Post procedure rhythm: unchanged. 13:34:55 Estimated blood loss: 5 ml 13:34:58 Post procedure instruction explained to patient.Patient verbalizes understanding. 13:34:59 Patient needs reinforcement of post procedure teaching. 13:35:44 Procedure type changed to Cath procedure, Diagnostic procedure, LHC, Coronaries w/Grafts, Aortic Root Angiography, Sedation Charges, Moderate Sedation up to 15 minutes 13:37:15 Procedure and supply charges have been captured, reviewed, submitted an d are correct. 13:40:10 Procedure Complication : No complications 13:40:18 Vital chart was stopped 13:40:49 [facility] Findings: KRISH- will discuss options w/ pt 13:40:56 Operative report dictated upon procedure completion. 13:40:58 See physician's report for complete and final results. 13:41:22 Report given to Pre/Post Procedure Room. 13:41:26 Patient transfered to Pre/Post Procedure Room with Stretcher. 13:41:29 Full Disclosure recording stopped 13:41:29 Procedure ended. 13:41:34 End room use (Document Last) Device Usage Item Name Manufacture Quantity Catalog Number Hospital Part Current Minim al Lot# / Charge Number Stock Stock Serial# Code ACIST Acist 1 52476 [id number] 882780 647185 20 Syringe Medical (08313) Systems Inc Bag Microtek 1 802716 56889 492047 5 Decanter Medical Inc. () Medline Medline 1 [id number] 089477 50767 379726 5 Cath Pack ([id number]) ACIST Hand Acist 1 53462 341231 836399 986830 5 Control Medical (49064) Systems Inc ACIST Acist 1 97844 150772 381677 519093 5 Manifold Medical (54256) Systems Inc DIAGNOSTIC Cardinal 1 [id number] 146921 78507 804919 30 Multipack Health 5Fr catheter set (DF1952) Tegaderm 4 3M 1 1626W 993511 149924 992056 5 x 4 (1626W) SHEATH 5FR Terumo 1 ZQC713 147961 906059 261804 5 Tetonia (QGK903) EMERALD Cardinal 1 502-455 208732 181878 582633 5 Guide Wire Health (502-455) MULTIPACK Cardinal 1 644111 5 JL 4.0 5Fr Health catheter DIAGNOSTIC Cardinal 1 [id number] 328196 238087 828063 15 AR MOD 5Fr Health Catheter (690493K) DIAGNOSTIC Clover 1 [id number] 083261 268744 67333 5 IMT 5Fr Scientific Catheter ([id number]) MULTIPACK Cardinal 1 112071 5 Pigtail 5 Health Fr catheter BENTSON 260 Cook Medical 1 I27909 611975 368246 592290 5 wire (X66823) EXOSEAL 5Fr Cardinal 1 EX500 539156 089242 939216 10 (EX500) Health Signature Audit [place] Stage Time Signature Unsigned Intra-Procedure 03/10/2019 Elham 1:42:04 PM Anjali RT(R) (CV) Intra-Procedure 03/10/2019 Ileana Shearer RN 1:42:33 PM Intra-Procedure 03/10/2019 Melvin Mcleod MD 1:44:56 PM [facility] [address] [place] [address]
[2019-03-10] MEDS ORDERED: PRESERVISION PO (11:02)
[2019-03-10] MEDS ORDERED: CARDIZEM CD180 MG PO (11:04)
[2019-03-10] MEDS ORDERED: VITAMIN C500 M1 PO (11:07)
[2019-03-10] MEDS ORDERED: CYMBALTA30 MG PO (11:08)
[2019-03-10 11:33] VITALS: BP 135/60; Ht 162.6 cm; Wt 72.7 kg
[2019-03-10 11:35] LABS: BASOPHILS 0.4 % (0-2); EOSINOPHILS 2.3 % (0-7); HEMATOCRIT 32.9 % (36.0-48.0); HEMOGLOBIN 11.2 g/dL (12-16); IMMATURE GRANULOCYTES 0.2 % (0-5); LYMPHOCYTES 27.1 % (15-50); MCH 33.3 pg (26.0-34.0); MCV 97.9 fL (80.0-100.0); MEAN PLATELET VOLUME 10.3 fL (7.4-10.4); MONOCYTES 6.2 % (2-11); NEUTROPHILS 63.8 % (40-80); PLATELET COUNT 230 10x3/uL (130-400); RBC 3.36 10x6/uL (4.00-5.40); RDW 13.8 % (11.5-14.5); WBC 5.7 10x3/uL (4.8-10.8)
[2019-03-10 11:52] LABS: ANION GAP 12.6 mmol/L (8-16); CHOL - HDL RATIO 3.1 ratio (2.3-4.1); CREATININE - SERUM 0.9 mg/dL (0.6-1.3); LDL-HDL RATIO 1.8 ratio (1.5-3.5); POTASSIUM - SERUM 4.6 mmol/L (3.5-5.1)
--- NOTE | 2019-03-10 14:27 | NUR ---
1405 ASSISTED PT ONTO BEDPAN, PT VOIDED APPROX 600 CC CLEAR YELLOW URINE. DRESSING REMAINS CDI RIGHT GROIN, PEDAL PULSES PALPABLE. PT DENIES ANY C/O, FRIEND AT BEDSIDE. VSS. 1425 DRESSING CDI, PEDAL PULSES PALPABLE, PT DENIES ANY C/O AT THIS TIME. VSS.
--- NOTE | 2019-03-10 14:50 | NUR ---
DRESSING TO RIGHT GROIN IS CDI, AREA IS SOFT AND NONTENDER. PEDAL PULSES PALPABLE. PT DENIES ANY C/O. HOB ELEVATED 30 DEGREES, SANDWICH AND PO FLUIDS SERVED.
--- NOTE | 2019-03-10 16:13 | NUR ---
1530 HOB FULLY ELEVATED. PT HAS WILFRED 100% OF SANDWICH AND PO FLUIDS. DRESSING REMAINS CDI, PEDAL PULSES PALPABLE. VSS, PT DENIES ANY C/O. FRIEND AT BEDSIDE. 1610 DRESSING REMAINS CDI, PT IS ALERT AND DENIES ANY C/O. IV DC'D WITH CATH INTACT AND PT IS DRESSING FOR DC WITH ASSIST.
--- NOTE | 2019-03-10 16:32 | NUR ---
1630 PT HAS AMBULATED TO THE [facility] AND VOIDED QS. DENIES ANY C/O PAIN OR NAUSEA. DC INSTRUCTIONS REVIEWED WITH PT AND FRIEND WHO VERBALIZE UNDERSTANDING. PT ESCORTED TO PRIVATE AUTO VIA WC BY NURSE WITH FRIEND DRIVING HER HOME. PT HAS ALL PERSONAL BELONGINGS AND DC INSTRUCTIONS AT TIME OF DISCHARGE, IS ALERT AND DENIES ANY C/O.
== END 2019-03-10 16:30 | disposition home or self-care (01) ==
LOC: D.CATH 10:30
PROVIDERS: ATTEND Internal Medicine Cardiovascular Disease
DX: I35.9 Nonrheumatic aortic valve disorder, unspecified (principal); R06.02 Shortness of breath; Z95.1 Presence of aortocoronary bypass graft; I25.10 Atherosclerotic heart disease of native coronary artery without angina pectoris

== ENCOUNTER 2019-04-19 12:25 | Emergency (ER) | payer MEDICARE, OTHER ==
[~2019-04-19] VITALS: Ht 162.6 cm; Wt 71.4 kg
[~2019-04-19 12:25] MED LIST changes: +CYMBALTA30 MG PO; +PRESERVISION PO; +VITAMIN C500 M1 PO
[2019-04-19 12:42] VITALS: Ht 162.6 cm; Wt 71.4 kg
[2019-04-19 14:26] LABS: CALC OSMOLALITY 281 mosm/kg (275-300); CALCIUM 9.3 mg/dL (8.5-10.1); CARBON DIOXIDE 26.7 mmol/L (21.0-32.0); CHLORIDE - SERUM 106 mmol/L (98-107); CREATININE - SERUM 0.9 mg/dL (0.6-1.3); GLUCOSE 90 mg/dL (74-106); POTASSIUM - SERUM 4.5 mmol/L (3.5-5.1); SODIUM 140 mmol/L (136-145); UREA NITROGEN 21 mg/dL (7-18); eGFR NON AFRICAN AMERICAN 65 mL/min (90-120)
[2019-04-19 14:36] LABS: BASOPHILS 0.4 % (0-2); EOSINOPHILS 2.7 % (0-7); IMMATURE GRANULOCYTES 0.2 % (0-5); LYMPHOCYTES 29.2 % (15-50); MCH 33.1 pg (26.0-34.0); MCHC 33.3 g/dL (31.0-37.0); MCV 99.2 fL (80.0-100.0); MEAN PLATELET VOLUME 10.8 fL (7.4-10.4); MONOCYTES 6.5 % (2-11); PLATELET COUNT 223 10x3/uL (130-400); RBC 3.63 10x6/uL (4.00-5.40); WBC 5.2 10x3/uL (4.8-10.8)
[2019-04-19 14:38] LABS: INR 1.06 (0.85-1.17); PROTIME 13.3 SECONDS (11.6-15.0)
[2019-04-19 14:43] LABS: ALBUMIN 3.9 g/dL (3.4-5.0); ALKALINE PHOSPHATASE 101 U/L (46-116); ALT (SGPT) 28 U/L (10-68); BILIRUBIN - TOTAL 0.59 mg/dL (0.2-1.3); CKMB 0.4 U/L (0.0-3.6); CREATINE KINASE 23 UL (21-215); PROTEIN - SERUM 7.7 g/dL (6.4-8.2); THYROID STIMULATING HORMONE 2.06 uIU/mL (0.36-3.74); TROPONIN-I 0.019 ng/mL (0.000-0.060)
[2019-04-19 16:45] VITALS: BP 185/76
== END 2019-04-19 16:42 ==
LOC: D.ER 12:25
PROVIDERS: Family Medicine
DX: I63.9 Cerebral infarction, unspecified (principal); I10 Essential (primary) hypertension; I25.2 Old myocardial infarction; Z95.5 Presence of coronary angioplasty implant and graft; Z95.1 Presence of aortocoronary bypass graft; I25.10 Atherosclerotic heart disease of native coronary artery without angina pectoris; F32.9 Major depressive disorder, single episode, unspecified; M54.9 Dorsalgia, unspecified; K21.9 Gastro-esophageal reflux disease without esophagitis

== ENCOUNTER 2019-05-23 11:25 | Observation (INO) | payer MEDICARE, OTHER ==
[~2019-05-23] VITALS: Ht 162.6 cm; Wt 70.5 kg
[~2019-05-23 11:25] MED LIST changes: +CARDIZEM CD360 MG PO
[2019-05-23 12:18] VITALS: BP 127/52
[2019-05-23 12:59] LABS: BASOPHILS 0.3 % (0-2); EOSINOPHILS 1.7 % (0-7); HEMATOCRIT 29.1 % (36.0-48.0); IMMATURE GRANULOCYTES 0.1 % (0-5); LYMPHOCYTES 14.9 % (15-50); MCH 33.3 pg (26.0-34.0); MCHC 34.4 g/dL (31.0-37.0); MEAN PLATELET VOLUME 10.1 fL (7.4-10.4); MONOCYTES 6.4 % (2-11); NEUTROPHILS 76.6 % (40-80); PLATELET COUNT 183 10x3/uL (130-400); RDW 14.2 % (11.5-14.5); WBC 7.2 10x3/uL (4.8-10.8)
[2019-05-23 13:06] LABS: CALC OSMOLALITY 282 mosm/kg (275-300); CARBON DIOXIDE 25.7 mmol/L (21.0-32.0); CHLORIDE - SERUM 104 mmol/L (98-107); CREATININE - SERUM 0.9 mg/dL (0.6-1.3); GLUCOSE 99 mg/dL (74-106); SODIUM 142 mmol/L (136-145); UREA NITROGEN 13 mg/dL (7-18); eGFR NON AFRICAN AMERICAN 65 mL/min (90-120)
[2019-05-23 13:24] LABS: APTT 31.6 SECONDS (22.8-39.4); INR 1.13 (0.85-1.17); PROTIME 13.9 SECONDS (11.6-15.0)
[2019-05-23 13:27] LABS: ALBUMIN 3.5 g/dL (3.4-5.0); ALKALINE PHOSPHATASE 78 U/L (46-116); ALT (SGPT) 20 U/L (10-68); BILIRUBIN - TOTAL 0.52 mg/dL (0.2-1.3); CKMB 0.3 U/L (0.0-3.6); CREATINE KINASE 23 UL (21-215); MAGNESIUM - SERUM 2.1 mg/dL (1.8-2.4); PROTEIN - SERUM 7.3 g/dL (6.4-8.2)
[2019-05-23 13:29] LABS: TROPONIN-I 0.111 ng/mL (0.000-0.060)
--- NOTE | 2019-05-23 16:12 | NUR ---
TRANSFER FROM ER BY W/C. GALEINTED TO ROOM. CALL LIGHT ON REACH. WILL CONT. PLAN OF CARE.
[2019-05-23 16:40] VITALS: BP 157/62; Ht 162.6 cm; Wt 70.5 kg
[2019-05-23 17:43] VITALS: BP 137/65
--- NOTE | 2019-05-23 19:30 | NUR ---
REPORT AND INITIAL ROUNDS COMPLETED. PT RESTING IN BED. NO DISTRESS. SR/BBB PER TELEMETRY. IV TO RIGHT HAND WITH NS @ 125ML/HR. PT IS ALERT/ORIENTED AND CONVERSES PLEASANTLY. PT TEACHING ON SAFETY, CALLING FOR ASSIST TO GO TO BATHROOM. CALL LIGHT IN REACH. CPOC.
[2019-05-23 20:00] VITALS: BP 140/68
[2019-05-23 20:10] LABS: APPEARANCE CLEAR (CLEAR); BILIRUBIN NEGATIVE (NEGATIVE); COLOR STRAW (YELLOW); GLUCOSE NEGATIVE (NEGATIVE); KETONE NEGATIVE (NEGATIVE); NITRITE NEGATIVE (NEGATIVE); PROTEIN NEGATIVE (NEGATIVE); SPECIFIC GRAVITY 1.005 (1.005-1.020); UROBILINOGEN NORMAL (NORMAL)
--- NOTE | 2019-05-23 22:39 | NUR ---
BEDTIME MEDS GIVEN. /86 PER TELEMETRY. CALL LIGHT IN REACH. CPOC.
[2019-05-24] VITALS (7 sets, daily range): BP systolic 139–172; BP diastolic 53–76
--- NOTE | 2019-05-24 01:47 | NUR ---
RESTING IN BED. IVF INFUSING. NO DISTRESS. SR/BBB/82 PER TELEMETRY. CPOC.
--- NOTE | 2019-05-24 05:56 | NUR ---
ORTHO BP'S LYING 159/74 SITTING 142/64 STANDING 148/61 ASYMPTOMATIC
[2019-05-24 06:24] LABS: BASOPHILS 0.6 % (0-2); EOSINOPHILS 4.4 % (0-7); HEMATOCRIT 25.8 % (36.0-48.0); HEMOGLOBIN 8.5 g/dL (12-16); LYMPHOCYTES 24.4 % (15-50); MCH 32.4 pg (26.0-34.0); MCHC 32.9 g/dL (31.0-37.0); MCV 98.5 fL (80.0-100.0); MEAN PLATELET VOLUME 10.7 fL (7.4-10.4); MONOCYTES 7.6 % (2-11); PLATELET COUNT 172 10x3/uL (130-400); RBC 2.62 10x6/uL (4.00-5.40); RDW 14.4 % (11.5-14.5)
[2019-05-24 06:25] LABS: WBC 5.3 10x3/uL (4.8-10.8)
--- NOTE | 2019-05-24 06:33 | NUR ---
PT RESTING WITH NO DISTRESS. NPO UNTIL SEEN BY PLANT PHYSIOLOGY TEACHER. IVF INFUSING. CPOC.
[2019-05-24 07:07] LABS: ALBUMIN 2.8 g/dL (3.4-5.0); ALKALINE PHOSPHATASE 65 U/L (46-116); ALT (SGPT) 18 U/L (10-68); BILIRUBIN - TOTAL 0.34 mg/dL (0.2-1.3); CALC OSMOLALITY 283 mosm/kg (275-300); CALCIUM 8.3 mg/dL (8.5-10.1); CHLORIDE - SERUM 109 mmol/L (98-107); CREATININE - SERUM 0.7 mg/dL (0.6-1.3); GLUCOSE 91 mg/dL (74-106); POTASSIUM - SERUM 3.9 mmol/L (3.5-5.1); PROTEIN - SERUM 6.2 g/dL (6.4-8.2); SODIUM 143 mmol/L (136-145); UREA NITROGEN 11 mg/dL (7-18); eGFR NON AFRICAN AMERICAN 87 mL/min (90-120)
[2019-05-24 07:10] LABS: TROPONIN-I 0.129 ng/mL (0.000-0.060)
--- NOTE | 2019-05-24 07:15 | NUR ---
RECEIVED PT IN BED AAOX4 RESP UNLABORED SKIN W/D COLOR WNL PT DENIES ANY NEEDS OR DISCOMFORT AT THIS TIME NAD NOTED
[2019-05-24] MEDS ORDERED: CARDIZEM CD180 MG PO (12:14)
--- NOTE | 2019-05-24 19:25 | NUR ---
RECEIVED BEDSIDE REPORT. PATIENT IS ALERT AND ORIENTED, RESTING COMFORTABLY IN BED. RESPIRATIONS ARE EVEN AND UNLABORED. NO S/S OF DISTRESS. NO C/OPAIN. CALL LIGHT WITHIN REACH. WILL CPOC.
--- NOTE | 2019-05-24 20:00 | NUR ---
ORTHOSTATIC BP: LAYING, 197/82 HR: 89 SITTING BP: 181/76 HR:98 STANDING BP: 198/85 HR: 100
--- NOTE | 2019-05-24 23:52 | NUR ---
ORTHOSTATIC BP LAYIN/72 HR: 82 SITTIN/73 HR 96 STANDIN/84 HR: 98
[2019-05-25] VITALS: BP 197/82
--- NOTE | 2019-05-25 03:36 | NUR ---
ORTHOSTATIC BP LAYIN/54 HR 92 SITTIN/62 HR 94 STANDIN/66 HR 94
[2019-05-25 04:00] VITALS: BP 115/54
[2019-05-25] MEDS ORDERED: FERROUS SULFAT325 MG PO (07:15)
--- NOTE | 2019-05-25 07:16 | HP ---
PATIENT: GWENDOLYN HORTON MEDICAL RECORD: [id number] ACCOUNT: [id number] LOCATION:[address] : [birth year] ADMISSION DATE: 05/23/19 PCP: AURELIA PRINGLE MD HISTORY AND PHYSICAL EXAMINATION REASON FOR ADMISSION: Syncopal episode post-TAVR procedure. HISTORY OF PRESENT ILLNESS: The patient is a 73-year-old female who a week ago underwent a TAVR procedure. She apparently required intubation for this procedure and stayed in the hospital 24 hours at [facility] and was discharged. She said she did not feel well the next 2 days, but felt better over the weekend. She had gotten up this morning, went to the bathroom and was getting a glass of water, when she said "oh, oh", felt like she was fainting and she passed out. She fell on her back and had a transient loss of consciousness. A friend was in the adjoining room, was in the bathroom within a minute and Gwendolyn was awakening at that point, there is no sign of incontinence. She now complains of some low back pain. She denied chest pain. Her friends took her blood pressure and said she had a blood pressure of 170/50. EMS brought her to the ED. PAST MEDICAL HISTORY: Severe aortic insufficiency, most recent TAVR procedure, history of CAD post-PTCA times 3 vessels, and catheterization 2017 showing patent grafts. 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 PAST SURGICAL HISTORY: TAVR, CABG times 3 vessels, right carotid endarterectomy and patch angioplasty per Dr. Morales in April of 2018. SOCIAL HISTORY: Socially, lives alone in the [facility]. She has a good friend who is a retired nurse. She is a former smoker, quit over 10 years ago. Drinks an occasional glass of wine. HOME MEDICATIONS: Plavix 75 mg a day, diltiazem CD 180 b.i.d., Cozaar 100 mg daily, Pravachol 80 mg at bedtime, aspirin 81 mg a day, Celexa 20 mg a day, Cymbalta 30 mg at bedtime, Lasix 40 mg p.o. q.a.m., famotidine 20 mg p.o. at bedtime, probiotic 1 capsule daily, Carafate 1 gram p.o. b.i.d., Synthroid 50 mcg p.o. q.a.m. a.c., PreserVision 1 b.i.d. FAMILY HISTORY: Positive for hypertensive heart disease. REVIEW OF SYSTEMS: CONSTITUTIONAL: He had been fatigued postoperative, better until today. No fever. HEENT: No recent visual change, sinus congestion, sore throat, or hearing difficulty. RESPIRATORY: Improved breathing on exertion since her surgery. Denies cough, sputum production or pleuritic chest pain or hemoptysis. CARDIAC: No palpitations, PND, orthopnea, chest pain. GASTROINTESTINAL: No nausea, vomiting, change in stools. GENITOURINARY: No incontinence. GYNECOLOGIC: No vaginal bleeding. PSYCHIATRIC: Denies depressed mood. HISTORY AND PHYSICAL [id number] GWENDOLYN HORTON NEUROLOGIC: Denies headache, previous history of fainting. Denies history of seizures. INTEGUMENT: No rash or itching. MUSCULOSKELETAL: Complaining of low back pain at this time when she lays on her right back. PHYSICAL EXAMINATION: VITAL SIGNS: Temperature 97.7 Fahrenheit orally, blood pressure was 127/52 with mild orthostasis, pulse 84, respirations 20, sats 99% on room air. HEENT: Eyes are clear. NECK: No bruits or masses. Scar over the right carotid previous surgery. No JVD. CHEST: Distant breath sounds without wheeze or rales. HEART: Regular rate and rhythm with I/ aortic systolic murmur. LUNGS: Clear. ABDOMEN: Soft, mildly obese, nontender. No organomegaly. EXTREMITIES: No CC&E. BACK: She has a 4 x 3 inch hematoma just right of the mid lumbar spine, tender to the touch. NEUROLOGIC: Oriented to person, place, and time. Cranial nerves intact. Gait is normal. Memory is intact. LABORATORY DATA: Shows a white count of 7200 with H&H of 10 and 29.1 respectively with a normal MCV. Chemistry showed BUN and creatinine of 13 and 0.9, glucose 99, magnesium 2.1, troponin 0.111. Urine is pending. INR is 1.13. DIAGNOSTIC DATA: CT of the head is unremarkable. CT of cervical spine shows no acute abnormality. Chest x-ray shows postoperative CABG, sternotomy wires, no evidence of failure. ASSESSMENT: 1. Syncopal episode, etiology unknown. She apparently has some mild orthostasis and is anemic per her postoperative state, which may have contributed. 2. History of aortic stenosis, post-TAVR. 3. Hypertension. 4. Hyperlipidemia. 5. Previous CAD with essentially negative heart cath in 2017. 6. Hypothyroidism. 7. Osteoarthritis. Low back pain post-fall. PLAN: We will check lumbar spine series. We will monitor overnight for arrhythmia orthostatic blood pressures. We will hold her losartan at this time due to potential for hypotension, will be given IV fluids overnight. Further workup to follow. We will repeat her echocardiogram. TRANSINT:[id number] Voice Confirmation ID: [id number] DOCUMENT ID: [id number] HISTORY AND PHYSICAL [id number] GWENDOLYN HORTON TIMOTHY MD at 0716 CC: [id number] DICTATION DATE: 05/23/19 161 ARMAMENT INSTALLER: 05/23/19 1649 ADM IN [place] [id number] [place] [address]
--- NOTE | 2019-05-25 07:42 | NUR ---
RECEIVED PT IN BED AAOX4 RESP UNLABORED SKIN W/D COLOR WNLDENIES ANY NEEDS OR DISCOMFORT AT THIS TIME
[2019-05-25 09:53] VITALS: BP 130/55
--- NOTE | 2019-05-25 12:00 | NUR ---
REVIEWED DISCHARGE INSTRUCTIONS WITH PT STATES UNDERSTANDING COPY GIVEN DCD SALINE LOCK TO RT HAND WITH IV CATHETER INTACT SITE FREE OF REDNESS OR EDEMA PT DISCHARGED HOME LEFT UNIT VIA W/C IN STABLE CONDITION WITH ALL PERSONAL BELONGINGS
--- NOTE | 2019-05-26 08:45 | MORECARE ---
CASE MANAGEMENT DISCHARGE SUMMARY PATIENT: CATERINA HORTON UNIT: [id number] ADM DATE: 05/23/19 AGE: 73 : 46 SEX: F ROOM/BED: D.3777 AUTHOR: PABLO WORKMAN PHYSICIAN: REFERRING PHYSICIAN: AURELIA PRINGLE MD DATE OF SERVICE: 05/26/19 Discharge Plan Patient Name: CATERINA HORTON Facility: [facility]:[place] : 1945 Planned Disposition: Home Anticipated Discharge Date: 05/25/19 Discharge Date: 05/25/2019 Expected LOS: 2 Initial Reviewer: [id number] Initial Review Date: 05/26/2019 Generated: 05/26/19 9:44 am Patient Name: CATERINA HORTON Page [id number] at 0845 All edits/amendments must be made on the electronic document DICTATION DATE: 05/26/19843 TROLLEY OPERATOR: DM 05/26/19843 RPT#: [id number] DC DATE:05/25/19 STATUS: DIS IN [facility] [address] [place] [address] END OF REPORT
== END 2019-05-25 12:00 | disposition home or self-care (01) ==
LOC: D.ER 11:25 → D.M2 15:03 → D.ER 15:24 → OBSVTIME 15:47 → D.M2 05-25 12:00
PROVIDERS: Family Medicine; ADMIT Family Medicine; ATTEND Family Medicine
DX: R55 Syncope and collapse (principal); I10 Essential (primary) hypertension; E78.5 Hyperlipidemia, unspecified; E03.9 Hypothyroidism, unspecified; M19.90 Unspecified osteoarthritis, unspecified site; Z95.2 Presence of prosthetic heart valve; E86.0 Dehydration; D64.9 Anemia, unspecified; R53.1 Weakness; I25.10 Atherosclerotic heart disease of native coronary artery without angina pectoris

== ENCOUNTER → 2019-06-08 08:07 | Outpatient (CLI) | payer MEDICARE, OTHER ==
[2019-05-23 16:40] VITALS: BMI 26.6
[~2019-06-08 08:07] MED LIST changes: +FERROUS SULFAT325 MG PO
== END | disposition home or self-care (01) ==
LOC: D.CT 08:07 → D.US 08:30 → D.ECHO 08:30 → D.HCCECHO 08:30 → D.US 09:30
PROVIDERS: ATTEND Internal Medicine Cardiovascular Disease
DX: I65.29 Occlusion and stenosis of unspecified carotid artery (principal)

== ENCOUNTER → 2019-06-22 09:25 | Outpatient (CLI) | payer MEDICARE, OTHER ==
[2019-05-23 16:40] VITALS: BMI 26.6
== END | disposition home or self-care (01) ==
LOC: D.CT 06-21 10:30
PROVIDERS: ATTEND Internal Medicine Cardiovascular Disease
DX: I65.23 Occlusion and stenosis of bilateral carotid arteries (principal)